=== PATIENT | female | born 1990 | race Caucasian/White ===

== ENCOUNTER 2024-07-19 05:15 | Emergency (ER) | payer MEDICAID, SELFPAY ==
[2024-07-19 05:19] VITALS: BMI 30.9
[2024-07-19 05:31] VITALS: BP 135/90; PULSE 70; RESP 16; TEMP 36.6; O2SAT 99
--- NOTE | 2024-07-19 06:22 | PD.EDNV ---
Nausea/Vomit./Diarrhea-RME/HPI General Chief complaint: Nausea/Vomiting/Diarrhea Stated complaint: VOMITING AND DIARRHEA FOR TWO HOURS Time Seen by Provider: 07/19/24 06:11 Source: patient Arrival date/time: 07/19/24 05:15 33-year-old female with a history of type 2 diabetes presents to the emergency room with a chief complaint of nausea, vomiting, diarrhea x 2 hours. Mode of arrival: ambulatory Limitations: no limitations Related Data Home Medications ?Medication ?Instructions ?Recorded ?Confirmed metformin 1,000 mg tablet 1,000 mg PO BID 06/19/21 06/23/21 norethindrone (contraceptive) 0.35 0.35 mg PO QDAY 06/19/21 06/23/21 mg tablet (Namita) paroxetine HCl 30 mg tablet 30 mg PO DAILY 06/19/21 06/23/21 sitagliptin phosphate 100 mg 100 mg PO QDAY 06/19/21 06/23/21 tablet (Januvia) Allergies Allergy/AdvReac Type Severity Reaction Status Date / Time No Known Allergies Allergy Verified 07/19/24 05:16 Review of Systems Review of Systems Systems Reviewed: All systems reviewed, normal except as documented Constitutional Constitutional: Reports system reviewed and no additional complaints, except as documented, Denies fatigue, Denies fever(s), Denies headache(s) and Denies weakness Eyes Eyes: Reports system reviewed and no additional complaints, except as documented, Denies blurry vision and Denies change in vision ENT Ears, Nose, Mouth, and Throat: Reports system reviewed and no additional complaints, except as documented, Denies otalgia, Denies headache(s), Denies nasal congestion, Denies throat swelling and Denies vertigo Cardiovascular Cardiovascular: Reports system reviewed and no additional complaints, except as documented, Denies chest pain, Denies dyspnea and Denies dyspnea on exertion Respiratory Respiratory: Reports system reviewed and no additional complaints, except as documented, Denies chest congestion, Denies cough, Denies dyspnea, Denies dyspnea on exertion and Denies wheezing Gastrointestinal Gastrointestinal: Reports system reviewed and no additional complaints, except as documented, Reports abdominal pain, Reports cramping, Reports nausea and Reports vomiting Genitourinary Genitourinary: Reports system reviewed and no additional complaints, except as documented Musculoskeletal Musculoskeletal: Reports system reviewed and no additional complaints, except as documented and Denies back pain Integumentary/Breasts Skin/Breast: Reports system reviewed and no additional complaints, except as documented and Denies wounds Neurologic Neurologic: Reports system reviewed and no additional complaints, except as documented, Denies confusion, Denies headache(s), Denies lack of coordination, Denies vertigo and Denies weakness Psychiatric Psychiatric: Reports system reviewed and no additional complaints, except as documented, Denies anxiety, Denies confusion, Denies depression, Denies paranoia, Denies suicidal ideation and Denies tactile hallucinations Endocrine Endocrine: Reports system reviewed and no additional complaints, except as documented and Denies fatigue Hematologic/Lymphatic Hematologic/Lymphatic: Reports system reviewed and no additional complaints, except as documented and Denies lymphadenopathy Allergic/Immunologic Allergic/Immunologic: Reports system reviewed and no additional complaints, except as documented, Denies throat swelling, Denies urticaria and Denies wheezing Past Medical History Past Medical History NEUROLOGIC: Positive Head Trauma (AT 4 YRS OLD ER VISIT,AT 10 YRS OLD MD VISIT); Negative Neurological Disorders, Cerebrovascular Accident, Alzheimer's Disease or Seizures CARDIAC: Negative Cardiac Disorders, Congestive Heart Failure, Edema, Cellulitis or Varicose Veins RESPIRATORY: Negative Chronic Obstructive Pulmonary Disease (COPD), Tuberculosis, Pulmonary Embolism or Sleep Apnea GASTROINTESTINAL: Positive Gastrointestinal Disorders and Gastroesophageal Reflux Disease; Negative Hepatitis or Colorectal Cancer GENITOURINARY: Negative Genitourinary Disorders, Renal Disease or Prostate Cancer REPRODUCTIVE: Positive Previous Pregnancies (X2); Negative Breast Cancer, Endometriosis, Genital Herpes, Gonorrhea, Pelvic Inflammatory Disease, Syphilis, Testicular Cancer or Uterine Prolapse MUSCULOSKELETAL: Positive Musculoskeletal Disorders; Negative Bone Cancer ENT: Positive Head Trauma (AT 4 YRS OLD ER VISIT,AT 10 YRS OLD MD VISIT) ENDOCRINE: Positive Endocrine Disorders and Diabetes Mellitus Type 2 (TAKES PO MED); Negative Diabetes Mellitus Type 1 HEMATOLOGIC: Negative Blood Disorders PSYCHO/SOCIAL: Positive Depression (TAKES MED), Anxiety and Depression OTHER HISTORY: Negative Hospitalization, Autoimmune Disease, Shingles, Falls, Blood Transfusions, Blood Transfusion Reaction, Anesthesia Reactions, Organ Transplant, Chemotherapy, Radiation Therapy, Hyperbaric Therapy, MRSA, VRSA, Vancomycin-Resistant Enterococci, Human Immunodeficiency Virus (HIV), Chicken Pox, Measles, Mumps, Rubella ([place] Measles), Pertussis, Clostridium Difficile, Breast Cancer, Cervical Cancer, Colorectal Cancer, Lung Cancer, Ovarian Cancer, Prostate Cancer or Testicular Cancer Family History FAMILY HISTORY: Positive Family Psychiatric Problems (MOTHER,SISTER (DEPRESSION,ANXIETY)), Family Respiratory Disorders (SISTER (ASTHMA)), Family Cardiac Disorders (MOTHER,FATHER (HTN)) and Family Surgery (FATHER,SISTER); Negative Family Gastrointestinal Problems, Family Cancer or Family Anesthesia Reaction Surgical History SURGICAL: Negative Pacemaker, Section or Organ Transplant Social History SMOKING STATUS: Never smoker SECOND HAND EXPOSURE: Yes (mother, father and brother) ED Exam General Limitations: Present no limitations General appearance: Present alert and in no apparent distress Head Head exam: Present atraumatic Eye Eye exam: Present normal appearance, PERRL and EOMI ENT ENT exam: Present normal exam, normal oropharynx and mucous membranes moist Neck Neck exam: Present normal inspection, full ROM and trachea midline Chest Chest inspection: Present normal inspection and symmetric chest wall rise Respiratory Respiratory exam: Present normal lung sounds bilaterally Cardiovascular Cardiovascular exam: Present regular rate, normal rhythm and normal heart sounds Abdominal Exam Abdominal exam: Present soft and normal bowel sounds; Absent distention, tenderness, guarding or rebound Extremities Exam Extremities exam: Present normal inspection and full ROM Back Exam Back exam: Present normal inspection and full ROM Neurological Exam Neurological exam: Present alert, oriented X3 and CN II-XII intact Psychiatric Psychiatric exam: Present normal affect and normal mood Skin Skin exam: Present warm, dry, intact and normal color Course Quality Measures none Orders Category Date Time Status CBC Stat Lab 07/19/24 06:26 Completed CMP [Comprehensive Metabolic Panel] Stat Lab 07/19/24 06:26 Completed HCG,Qualitative Serum Stat Lab 07/19/24 06:26 Completed Lipase Stat Lab 07/19/24 06:26 Completed Metoclopramide Inj [Reglan Inj] Med 07/19/24 06:21 Discontinued 10 mg IM X1 ONE Vital Signs Vital signs: Vital Signs Temperature 97.9 F 07/19/24 05:31 Pulse Rate 70 07/19/24 05:31 Respiratory Rate 16 07/19/24 05:31 Blood Pressure 135/90 H 07/19/24 05:31 Pulse Oximetry (%) 99 07/19/24 05:31 Oxygen Delivery Method Room Air 07/19/24 05:31 O2 saturation 99% within normal limits Nausea/Vomiting/Diarrhea MDM Narrative MDM Narrative:: 33-year-old female with a history of type 2 diabetes presents to the emergency room with a chief complaint of nausea, vomiting, diarrhea x 2 hours. Patient is hemodynamically stable and in no apparent distress Physical examination shows a soft nontender abdomen Patient is seen here due to her nausea and vomiting that have been going on for the last 2 hours and have not gotten better. Patient states she recently restarted to take her Ozempic medication and started it at her old dose. Patient states since taking this medication she has developed abdominal pain nausea and vomiting CBC CMP are within normal limits. The patient was given an IM shot of Reglan and her symptoms have gotten better The patient was called back for reevaluation but eloped. Patient eloped prior to final disposition Patient data External records reviewed:: [facility] previous records Clinical information provided by:: patient Social determinants that could affect healthcare access:: none Patient has the following chronic illnesses:: No chronic illness How is presenting disease/condition affected by chronic disease/condition?: no chronic disease Evaluation data The following diagnostics were reviewed and interpreted by me:: lab results and radiology exam(s) Lab and/or radiology exams considered but not ordered:: Labs and radiology exams considered and ordered Interpretation Summary: N/A Medications / Prescriptions Medications / Prescriptions considered but not ordered:: Medication given Medication administrations:: Medication Administration History Discontinued Medications Metoclopramide HCl (Metoclopramide Inj 5 Mg/Ml Vial 2 Ml) 10 mg IM X1 ONE; Protocol Stop: 07/19/24 06:22 Last Admin: 07/19/24 06:48 Dose: 10 mg Documented By: BD Medication given Consultations Consultation(s) initiated? (list below): No Diagnosis Nausea Differential Diagnosis: food poisoning, gastroenteritis, drug-induced nausea and vomiting and dehydration Most likely diagnosis given after review of the tests above:: Gastroenteritis Admission Indicated Admission indicated?: not indicated Admission Request Was there a request for admission?: No Disposition Plan Disposition Plan: Discharge Discharge Attestation Discharge Attestation: The patient and all family members were given an opportunity to ask questions and understood the discharge instructions. Discharge instructions specifically effects, indications for sooner follow up or return to the emergency department, and the expected course of current diagnosis. Patient condition: Stable Discharge Plan Plan Patient Disposition: Elopement Discharge Disposition comment: Stable Prescriptions/Referrals Prescriptions/Med Rec: No Action paroxetine HCl 30 mg Tablet 30 mg PO DAILY metformin 1,000 mg tablet 1,000 mg PO BID Patient Comments: TAKE 1 TABLET BY MOUTH TWICE A DAY WITH A MEAL FOR 90 DAYS norethindrone (contraceptive) [Namita] 0.35 mg Tablet 0.35 mg PO QDAY Januvia 100 mg Tablet 100 mg PO QDAY Problem List Clinical Impression: Gastroenteritis Patient/Caregiver Discharge Instructions Print Language: Telugu
[2024-07-19 06:46] LABS: Basophils # (Auto) 0.1 Thou/mm3 (0.0-0.2); Basophils % (Auto) 1 % (0-2.5); Eosinophils % (Auto) 0 % (0-10); Hematocrit 39.9 % (36.0-46.0); Hemoglobin 14.7 g/dL (12.0-16.0); Immature Granulocytes % (Auto) 0 % (0-0); Immature Granulocytes Auto 0.04 Thou/mm3 (0.00-0.00); Lymphocytes # (Auto) 1.1 Thou/mm3 (1.0-4.8); Lymphocytes % (Auto) 9 % (10-50); Mean Corpuscular HGB Conc 36.8 g/dl (31.0-37.0); Mean Corpuscular Volume 87 fL (80-100); Monocytes # (Auto) 0.4 Thou/mm3 (0.0-0.8); Monocytes % (Auto) 3 % (0-12); Neutrophils # (Auto) 11.5 Thou/mm3 (1.8-7.7); Neutrophils % (Auto) 87 % (37-80); Nucleated Red Blood Cell % 0 /100 WBC (0); Platelet Count 254 Thou/mm3 (140-440); RDW Standard Deviation 40.4 fL (36.4-46.3); Red Blood Count 4.59 Miln/mm3 (4.00-5.20); White Blood Count 13.2 Thou/mm3 (3.6-11.0)
[2024-07-19] MEDS: METOCLOPRAMIDE INJ 5 MG/ML VIAL 2 ML 10 MG IM (06:48)
[2024-07-19 07:11] LABS: Alanine Aminotransferase 28 U/L (10-49); Albumin, Serum 4.6 gm/dL (3.5-5.0); Albumin/Globulin Ratio 1.7 (1.2-2.2); Alkaline Phosphatase 48 U/L (46-116); Anion Gap 16 (7-16); Aspartate Amino Transferase 36 U/L (0-34); BUN/Creatinine Ratio 10 Ratio (12-20); Bilirubin,Total 0.6 mg/dL (0.3-1.2); Blood Urea Nitrogen 7 mg/dL (9-23); Carbon Dioxide 21.8 mMol/L (20.0-31.0); Chloride 104 mMol/L (98-107); Creatinine (Component) 0.7 mg/dL (0.6-1.3); Estimated Creatinine Clearance 120.4 mL/min (>60); Globulin 2.7 gm/dL (2.3-3.5); Glucose 276 mg/dL (74-106); Lipase 56 U/L (12-53); Osmolality,Calculated 291 (275-295); Potassium 3.9 mMol/L (3.4-5.1); Sodium 142 mMol/L (136-145); Total Protein 7.3 gm/dL (5.7-8.2); eGFR > 60 See Note
[2024-07-19 07:15] LABS: HCG,Qualitative Serum Negative
--- NOTE | 2024-07-19 07:37 | PC.NURSE ---
CALLED PT FOR MEDIA PLANNER/PA REEVAL BUT DID NOT ANSWER X1
--- NOTE | 2024-07-19 09:08 | PC.NURSE ---
PT WAS CALLED THE FOLLOWING TIMES AND NO ANSWER NA x 1 @040, NA @0811 , NA@ 0834, NA@ 0936
== END 2024-07-19 09:10 | disposition left against medical advice (07) ==
LOC: SERX 09:30
PROVIDERS: Nurse Practitioner Family; Emergency Provider Emergency Medicine
DX: K52.9 Noninfective gastroenteritis and colitis, unspecified (principal); E11.9 Type 2 diabetes mellitus without complications
CPT/HCPCS: 36415; 80053; 83690; 84703; 85025; 96372; 99283; J2765

== ENCOUNTER 2024-07-20 03:56 | Inpatient (IN) | payer MEDICAID, SELFPAY ==
[2024-07-20 03:58] VITALS: BMI 30.9
[2024-07-20 05:08] VITALS: BP 148/93; PULSE 87; RESP 20; TEMP 37.2; O2SAT 96
--- NOTE | 2024-07-20 05:35 | PD.EDRME ---
Rapid Medical Screening Exam [facility] Arrival date/time: 07/20/24 03:56 33F with history of DM and marijuana use presents to ED with several days of N/V and minimal non-bloody diarrhea. Patient was here yesterday but eloped. Patient has never been in DKA and denies ab pain. Patient resumed Ozempic about 3 weeks ago. Chief Complaint: Nausea/Vomiting/Diarrhea Vital signs: Vital Signs Temperature 99.0 F 07/20/24 05:08 Pulse Rate 87 07/20/24 05:08 Respiratory Rate 20 07/20/24 05:08 Blood Pressure 148/93 H 07/20/24 05:08 Pulse Oximetry (%) 96 07/20/24 05:08 Oxygen Delivery Method Room Air 07/20/24 05:08
[2024-07-20 06:33] LABS: Collection Type, Urine Clean Catch
[2024-07-20 06:36] LABS: Lactate (Lactic Acid) 1.8 mMol/L (0.4-2.0)
[2024-07-20 06:37] LABS: Base Excess, Venous 2 (-3-3); O2 Saturation, Venous 72 % (96-97); PCO2, Venous 42 mmHg (36-56); PO2, Venous 38 mmHg (15-58); pH, Venous 7.41 (7.33-7.66)
[2024-07-20 06:39] LABS: Basophils % (Auto) 0 % (0-2.5); Eosinophils % (Auto) 0 % (0-10); Hematocrit 44.7 % (36.0-46.0); Hemoglobin 15.8 g/dL (12.0-16.0); Immature Granulocytes % (Auto) 0 % (0-0); Immature Granulocytes Auto 0.08 Thou/mm3 (0.00-0.00); Lymphocytes # (Auto) 1.4 Thou/mm3 (1.0-4.8); Lymphocytes % (Auto) 8 % (10-50); Mean Corpuscular HGB Conc 35.3 g/dl (31.0-37.0); Mean Corpuscular Hemoglobin 32.1 pg (25.0-35.0); Mean Corpuscular Volume 91 fL (80-100); Monocytes # (Auto) 0.9 Thou/mm3 (0.0-0.8); Monocytes % (Auto) 5 % (0-12); Neutrophils # (Auto) 15.7 Thou/mm3 (1.8-7.7); Neutrophils % (Auto) 87 % (37-80); Nucleated Red Blood Cell % 0 /100 WBC (0); Platelet Count 336 Thou/mm3 (140-440); RDW Standard Deviation 42.8 fL (36.4-46.3); Red Blood Count 4.92 Miln/mm3 (4.00-5.20); White Blood Count 18.1 Thou/mm3 (3.6-11.0)
[2024-07-20 06:43] LABS: Beta Hydroxybutyrate 0.8 mmol/L (<0.6)
[2024-07-20 06:48] LABS: HCG Qualitative,Urine Negative
[2024-07-20 06:55] LABS: Amorphous Crystals,Urine Present (Absent); Bacteria,Urine Rare; Bilirubin,Urine Negative (Negative); Blood,Urine Trace (Negative); Clarity,Urine Turbid (Clear/Hazy); Color,Urine Yellow (Lt Yel-Yel); Culture Indicated,Urine Not Indicated; Glucose, Urine 1+ (Negative); Ketones,Urine 4+ (Negative); Leukocyte Esterase,Urine Negative (Negative); Nitrite,Urine Negative (Negative); PH,Urine 6.5 (5.0-7.0); Protein,Urine 3+ (Neg - Trace); RBC,Urine 4 /hpf (0-3); Specific Gravity,Urine 1.036 (1.001-1.035); Squamous Epithelial Cell,Urine 5 /hpf (0-5); Urobilinogen,Urine Negative mg/dL (0.0-1.0); WBC,Urine 8 /hpf (0-5)
[2024-07-20 06:58] LABS: Amphetamine/Methamp Scrn,U Negative (Negative); Barbiturate Screen,Urine Negative (Negative); Benzodiazepines Screen,Urine Negative (Negative); Benzoylecgonine Screen, Ur Negative (Negative); Fentanyl Screen,Urine Negative (Negative); Opiate Screen,Urine Negative (Negative); THC Screen,Urine Positive (Negative)
[2024-07-20 07:07] LABS: Alanine Aminotransferase 25 U/L (10-49); Albumin, Serum 5.2 gm/dL (3.5-5.0); Albumin/Globulin Ratio 1.9 (1.2-2.2); Alkaline Phosphatase 52 U/L (46-116); Anion Gap 16 (7-16); Aspartate Amino Transferase 21 U/L (0-34); BUN/Creatinine Ratio 10 Ratio (12-20); Bilirubin,Total 0.6 mg/dL (0.3-1.2); Blood Urea Nitrogen 8 mg/dL (9-23); Calcium 9.2 mg/dL (8.3-10.6); Calcium (Corrected) 9.2 mg/dL (8.5-10.1); Carbon Dioxide 24.5 mMol/L (20.0-31.0); Chloride 102 mMol/L (98-107); Creatinine (Component) 0.8 mg/dL (0.6-1.3); Estimated Creatinine Clearance 105.3 mL/min (>60); Globulin 2.8 gm/dL (2.3-3.5); Glucose 235 mg/dL (74-106); Lipase 55 U/L (12-53); Osmolality,Calculated 289 (275-295); Potassium 3.4 mMol/L (3.4-5.1); Procalcitonin < 0.04 ng/ml (0.0-0.49); Sodium 142 mMol/L (136-145); eGFR > 60 See Note
[2024-07-20] MEDS: METOCLOPRAMIDE INJ 5 MG/ML VIAL 2 ML 10 MG IVP ×2 (07:53→22:09)
[2024-07-20] MEDS: DiphenhydrAMINE INJ 50 MG/ML VIAL 12.5 MG IVP (07:55)
[2024-07-20] MEDS: RINGERS LACTATED 1000 ML 1,000 ML 999 ML IV (07:56)
--- NOTE | 2024-07-20 08:37 | PC.NURSE ---
PTS MOM ARRIVED, STATING HER DAUGHTER NEEDS A ROOM, QUESTIONING WHY SHE IS IN RP. THIS RN EXPLAINED, PT APPEARED UNCOMFORTABLE AND THERE ARE NO ROOMS AVAILABLE CURRENTLY ON THE MAIN SIDE PT HAS BEEN SLOTTED FOR MAIN ED. MOM THEN STATES THAT THERE ARE PLENTY OF ROOMS OPEN, THIS RN EXPLAINED THERE ARE NONE AVAILABLE FOR THE MAIN SIDE AT THIS TIME, THAT THE EMPTY ROOMS IN [facility] ARE PROCEDURE ROOMS FOR PTS WHO REQUIRE PRIVACY FOR PROCEDURES. THIS RN EXPLAINED THAT THIS RN NOTICED PT WAS CRYING UNCOMFORTABLE, SO MYSELF AND THE GLAUCOMA SPECIALIST AGREED TO PUT PT IN RP SO THIS RN CAN START AN IV AND MEDICATE PT TO MAKE HER MORE COMFORTABLE. GLAUCOMA SPECIALIST MADE AWARE OF THIS INTERACTION
[2024-07-20] MEDS: ONDANSETRON INJ 2 MG/ML INJ 2 ML 8 MG IVP (09:17)
[2024-07-20 10:14] VITALS: BP 143/90; PULSE 98; RESP 18; TEMP 37.1; O2SAT 98
[2024-07-20] MEDS: SODIUM CHLORIDE 0.9% 1000 ML 1,000 ML 999 ML IV ×3 (12:51→19:15)
[2024-07-20] MEDS: DiphenhydrAMINE INJ 50 MG/ML VIAL IVP (12:52)
[2024-07-20] MEDS: HALOPERIDOL LACT INJ 5 MG/ML VIAL 2 MG IV (12:55)
[2024-07-20 13:29] VITALS: BP 121/79; PULSE 88; RESP 18; TEMP 37.1; O2SAT 98
[2024-07-20] MEDS: HALOPERIDOL LACT INJ 5 MG/ML VIAL 3 MG IV (14:17)
--- NOTE | 2024-07-20 16:40 | PC.NURSE ---
Hand off report received from Fifi HOYT. Pt was seen, pt c/o of n/v she is hunched over and vomiting yellow bile like emesis. Pt is also requesting something to eat, I explained to her that she is not able to have anything d/t her nausea and doctor needs to see her first. Pt agreed.
[2024-07-20 17:51] VITALS: BP 145/96; PULSE 84; RESP 16; TEMP 36.8; O2SAT 97
--- NOTE | 2024-07-20 19:00 | XR_ITS ---
Examination: CT abdomen with intravenous contrast CT pelvis with intravenous contrast 2-D coronal reconstructions 2-D sagittal reconstructions Date and time of exam:July 20, 20242000 hours INDICATIONS: Vomiting and nausea beginning 2 days ago. CTDI: vol (mGy) 12 DLP: (mGycm) 724 Technique: Multiple axial sections of the abdomen and pelvis have been obtained. 64 slice high-resolution scanner used. 3 mm axial sections have been obtained, post intravenous injection 60 cc [id number] 2-D sagittal, coronal reconstructions obtained. Low dose protocols were performed. One or more of the following dose reduction techniques were used; automated exposure control, adjustment of the mA and/or KV according to patient size, use of iterative reconstruction technique. Findings: No focal liver or splenic lesions No gallstones No pancreatic or adrenal mass No renal or ureteral calculi, no bowel obstruction Normal appendix No diverticulitis, colonic wall shows mild wall thickening and hyperemia Anteverted uterus with no uterine mass Intact urinary bladder Mild disc narrowing L5-S1 IMPRESSION: Mild nonspecific diffuse colitis pattern
--- NOTE | 2024-07-20 19:02 | PD.EDADDENDU ---
Emergency Room Addendum Addendum Narrative: Patient was brought back from the waiting room for my reevaluation where she has intractable nausea and vomiting and is a known diabetic. 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 She was not acidotic. Not in DKA. After 7 to 8 hours of observing working her up and fluids she is still not better. I ordered a CT scan of the abdomen pelvis even of the abdomen soft and benign after consultation with hospitalist and the plan is to admit her for intractable nausea and vomiting. I reexamined this patient multiple times she does have a soft benign belly. She is alert awake cooperative chest is clear there are no peritoneal signs. Extremities are warm and dry. Labs show specific gravity quite dry on original urine analysis. Physical Exam: General: The vital signs were reviewed. The patient is non-toxic, in no apparent distress and appears healthy with a patent airway, no respiratory distress and has no apparent circulatory problems. Head & Scalp: Normocephalic, atraumatic. Face: Appears normal and is without lesions, deformity. Ears: Left external pinna appears normal. Right external pinna appears normal. Eyes: The sclera is anicteric. No obvious photophobia. The Left and Right Orbit/Lid/Conjunctiva appears normal without swelling, discoloration or injection. Nose: The nose is without deformity, discharge or tenderness; Throat: Appears normal. The mucous membranes are pink and moist without exudates, redness or mass seen. The tongue appears normal. Neck: The neck is supple and no apparent mass or adenopathy. Chest: The chest wall is normal in size and symmetry and has no chest wall tenderness or crepitus. The patient displays normal ventilator effort without retractions, accessory muscle use and has adequate air movement bilaterally with no wheezes and no rales. Cardiovascular: Regular rate and rhythm; No murmurs, rubs, or gallops; Gastrointestinal: The abdomen appears normal. No obvious hernias or mass. The abdomen is soft and benign, non-distended, with no pain, no guarding and no rebound tenderness. Bowel sounds are present and normal sounding. No CVA tenderness. Genitourinary: Back/Spine: Extremities/Musculoskeletal/lymphatic: The bilateral upper and lower extremities are warm. There is no evidence of arterial insufficiency. There is no evidence of venous insufficiency/edema. The patient spontaneously moves bilateral upper and lower extremities with no pain and no limitation of movement. There is no apparent, injury or trauma. Skin: The skin is warm, dry and intact. No rashes. No petechia. No purpura. No abnormal bruising. The color is appropriate with no cyanosis. Mental status/Psychiatric: Mental status is appropriate for age. The patient has no apparent delusions, visual hallucinations, no apparent audible hallucinations. The patient has no apparent suicidal thoughts/ideation and no apparent homicidal thoughts/ideation. Neurological: The patient is awake, alert, interactive, cordial, cooperative and is oriented to name and situation. The patient follows commands and answers historical question with no impairment. There is no visual disturbance apparent. The pupils are equal and reactive bilaterally with normal eye movements and no diplopia The bilateral upper and lower extremities have normal strength, normal range of motion and normal functioning. The gait, station and balance appear to be baseline with no acute change At 1900 hrs. and they will follow-up on the CT scan the patient admitted for intractable nausea vomiting
[2024-07-20] MEDS: ONDANSETRON INJ 2 MG/ML INJ 2 ML 4 MG IV (20:49)
[2024-07-20] MEDS: RINGERS LACTATED 1000 ML 1,000 ML 75 ML IV (20:50)
[2024-07-20] MEDS: cefTRIAXone/D5w 1gm IV premix 1 GM/50 ML BAG IV (22:08)
[2024-07-20] MEDS: HEPARIN SOD INJ 5000 UNIT/ML VIAL SC (22:08)
[2024-07-20] MEDS: SCOPOLAMINE 1 MG TDSY TOP (22:09)
--- NOTE | 2024-07-20 22:13 | PD.RESHP ---
Documentation for date of: 07/20/24 HPI History of Present Illness Chief complaint: Intractable nausea and vomiting History of present illness: Patient is 33-year-old female with past medical history of diabetes and obesity presented to the ED due to intractable nausea and vomiting since . Patient reports that day prior on Tuesday she received her third dose of Ozempic for weight loss. She was prescribed Ozempic more than a year ago and was getting shots regularly however discontinued it approximately 3 months ago. When she was initiated on Ozempic her dose was gradually increased however at this time she was started straight on 1 mg dose. Her nausea and vomiting started suddenly in the morning and were uncontrolled. She did not try to take any medication and her p.o. intake was poor. She denies previous similar symptoms. She smokes marijuana daily. She denies using any other drugs, smoking tobacco or drink alcohol. She denies diarrhea or constipations. She denies any blood per rectum or vomiting blood. She also denies eating anything unusual or recent travel. On admission her blood pressure 148/93, pulse 87, respirations 20, temperature 99 ?F, oxygen saturation 96% on room air. Labs showed WBCs 18.1, glucose 235, BHB 0.8, lipase 55, pro-jaelyn < 0.04, anion gap 16, lactic acid 1.8. VBG showed pH 7.41, PCO2 42, PO2 38. Urinalysis showed turbid urine, specific gravity 1.036, protein 3+, glucose 1+, ketones 4+, RBCs 4, WBCs 8, presence of amorphous crystals, rare bacteria. U tox was positive for THC. Abdominal CT showed nonspecific diffuse colitis pattern. Patient was admitted for further management and evaluation. PMH: Diabetes and obesity. PSH: None. SH: Smokes marijuana daily. Denies drinking alcohol or smoking tobacco or using other illicit drugs. FH: None. Allergies: NKA. Medications: Paroxetine, metformin, Januvia, Ozempic. Review of Systems Review of Systems Systems Reviewed: All systems reviewed, normal except as documented Exam Vital Signs Temp Pulse Resp BP Pulse Ox O2 Del Method 98.2 F 84 16 145/96 H 97 Room Air 07/20/24 17:51 07/20/24 17:51 07/20/24 17:51 07/20/24 17:51 07/20/24 17:51 07/20/24 17:51 Narrative Exam Gen: Well-developed and well-nourished obese female. HEENT: NCAT, PERRLA, EOMI, MMM, anicteric conjunctivae. CVS: normal S1 and S2. RRR. No M/R/G. Resp: CTA B/L. No rhonchi, rales, crackles or wheezing. Abd: soft, tender in RLQ, non-distended. BS+ in all 4 quadrants. MSK: Good ROM in BUE & BLE. No edema or rash. Neuro: CN II-XII grossly intact. Strength 5/5 in BUE & BLE. Alert and oriented x3. Psych: Appears tearful and scared. Results: Labs 07/20/24 22:27 07/20/24 22:27 Labs: Short CBC 07/20/24 Range/Units 06:15 WBC 18.1 H (3.6-11.0) Thou/mm3 Hgb 15.8 (12.0-16.0) g/dL Hct 44.7 (36.0-46.0) % Plt Count 336 D (140-440) Thou/mm3 BMP 07/20/24 06:15 Sodium 142 Potassium 3.4 D Chloride 102 Carbon Dioxide 24.5 BUN 8 L Creatinine 0.8 Glucose 235 H Calcium 9.2 Liver Function 07/20/24 Range/Units 06:15 Total Bilirubin 0.6 (0.3-1.2) mg/dL AST 21 (0-34) U/L ALT 25 (10-49) U/L Alkaline Phosphatase 52 (46-116) U/L Albumin 5.2 H D (3.5-5.0) gm/dL Urine 07/20/24 Range/Units 06:20 Urine Color Yellow (Lt Yel-Yel) Urine Clarity Turbid A (Clear/Hazy) Urine pH 6.5 (5.0-7.0) Ur Specific [place] 1.036 H (1.001-1.035) Urine Protein 3+ A (Neg - Trace) Urine Glucose (UA) 1+ A (Negative) ABG Interpretation ABG results: 07/20/24 06:15 VBG pH 7.41 VBG pCO2 42 VBG pO2 38 VBG Base Excess 2 Quality Measures Quality Measures VTE prophylaxis Medications Home Medications and Allergies Home Medications ?Medication ?Instructions ?Recorded ?Confirmed ?Type metformin 1,000 mg tablet 1,000 mg PO BID 06/19/21 06/23/21 History norethindrone (contraceptive) 0.35 0.35 mg PO QDAY 06/19/21 06/23/21 History mg tablet (Namita) paroxetine HCl 30 mg tablet 30 mg PO DAILY 06/19/21 06/23/21 History sitagliptin phosphate 100 mg 100 mg PO QDAY 06/19/21 06/23/21 History tablet (Januvia) Allergies Allergy/AdvReac Type Severity Reaction Status Date / Time No Known Allergies Allergy Verified 07/20/24 04:01 Visit Medications Acetaminophen (Acetaminophen 325 Mg Tablet) 650 mg PO Q6H PRN PRN Reason: Fever >101.5 Stop: 08/19/24 20:35 Acetaminophen (Acetaminophen 325 Mg Tablet) 650 mg PO Q6H PRN PRN Reason: PAIN SCALE 1-3 (mild Stop: 08/19/24 20:35 Heparin Sodium (Porcine) (Heparin Sod Inj 5000 Unit/Ml Vial) 5,000 unit SC Q12HR [facility] Stop: 08/03/24 20:59 Lactated Ringer's (Lactated Ringers) 1,000 mls @ 75 mls/hr IV .[id number] [facility] Stop: 08/19/24 20:44 Last Admin: 07/20/24 20:50 Dose: 75 mls/hr Ceftriaxone Sodium/Dextrose (Rocephin/D5w 1gm Iv Premix) 1 gm in 50 mls @ 100 mls/hr IV QDAY [facility] Stop: 07/27/24 21:19 Melatonin (Melatonin 3 Mg Tablet) 3 mg PO HS PRN PRN Reason: insomnia Stop: 08/20/24 20:59 Metoclopramide HCl (Metoclopramide Inj 5 Mg/Ml Vial 2 Ml) 10 mg IVP Q6H PRN; Protocol PRN Reason: NAUSEA OR VOMITING Stop: 08/19/24 20:35 Pantoprazole Sodium (Pantoprazole Inj 40 Mg Vial) 40 mg IVP QDAY [facility] Stop: 08/20/24 08:59 Prochlorperazine Maleate (Prochlorperazine Maleate 5 Mg Tablet) 10 mg PO Q6H PRN; Protocol PRN Reason: NAUSEA OR VOMITING Stop: 08/19/24 20:35 Sennosides (Senna Tablet) 1 tab PO QDAY PRN; Protocol PRN Reason: constipation Stop: 08/19/24 20:35 Discontinued Medications Diphenhydramine HCl (Diphenhydramine Inj 50 Mg/Ml Vial) 12.5 mg IVP X1 ONE Stop: 07/20/24 05:35 Last Admin: 07/20/24 07:55 Dose: 12.5 mg Diphenhydramine HCl (Diphenhydramine Inj 50 Mg/Ml Vial) 50 mg IVP X1 ONE Stop: 07/20/24 12:39 Last Admin: 07/20/24 12:52 Dose: 50 mg Haloperidol Lactate (Haloperidol Lact Inj 5 Mg/Ml Vial) 2 mg IV X1 ONE Stop: 07/20/24 12:39 Last Admin: 07/20/24 12:55 Dose: 2 mg Haloperidol Lactate (Haloperidol Lact Inj 5 Mg/Ml Vial) 3 mg IM X1 ONE Stop: 07/20/24 14:05 Last Admin: 07/20/24 14:16 Dose: Not Given Haloperidol Lactate (Haloperidol Lact Inj 5 Mg/Ml Vial) 3 mg IM X1 ONE Stop: 07/20/24 14:13 Last Admin: 07/20/24 14:15 Dose: Not Given Haloperidol Lactate (Haloperidol Lact Inj 5 Mg/Ml Vial) 3 mg IV X1 ONE Stop: 07/20/24 14:16 Last Admin: 07/20/24 14:17 Dose: 3 mg Lactated Ringer's (Lactated Ringers) 1,000 mls @ 999 mls/hr IV .Q1H1M ONE Stop: 07/20/24 06:34 Last Infusion: 07/20/24 09:22 Dose: Infused Sodium Chloride (Ns) 1,000 mls @ 150 mls/hr IV .Q6H40M ONE Stop: 07/20/24 19:03 Last Admin: 07/20/24 14:03 Dose: Not Given Sodium Chloride (Ns) 1,000 mls @ 999 mls/hr IV .Q1H1M ONE Stop: 07/20/24 13:24 Last Infusion: 07/20/24 14:00 Dose: Infused Sodium Chloride (Ns) 1,000 mls @ 999 mls/hr IV .Q1H1M ONE Stop: 07/20/24 15:03 Last Infusion: 07/20/24 15:31 Dose: Infused Sodium Chloride (Ns) 1,000 mls @ 999 mls/hr IV .Q1H1M ONE Stop: 07/20/24 20:00 Last Infusion: 07/20/24 20:41 Dose: Infused Metoclopramide HCl (Metoclopramide Inj 5 Mg/Ml Vial 2 Ml) 10 mg IVP X1 ONE; Protocol Stop: 07/20/24 05:35 Last Admin: 07/20/24 07:53 Dose: 10 mg Ondansetron HCl (Ondansetron Inj 2 Mg/Ml Inj 2 Ml) 8 mg IVP X1 ONE; Protocol Stop: 07/20/24 09:11 Last Admin: 07/20/24 09:17 Dose: 8 mg Ondansetron HCl (Ondansetron Inj 2 Mg/Ml Inj 2 Ml) 4 mg IV X1 ONE; Protocol Stop: 07/20/24 20:35 Last Admin: 07/20/24 20:49 Dose: 4 mg Scopolamine (Scopolamine 1 Mg Tdsy) 1 mg TOP X1 ONE Stop: 07/20/24 21:20 Assessment & Plan Plan Patient is 33-year-old female with past medical history of diabetes and obesity on ozempic presented to the ED due to intractable nausea and vomiting since and was admitted for further management and evaluation. #Intractable nausea and vomiting. #Nonspecific colitis on CT scan. #Mildly elevated lipase. #History of type 2 diabetes mellitus with hyperglycemia. #History of obesity on Ozempic. #Daily use of marijuana. - Patient presented with nonspecific symptoms of intractable nausea and vomiting, her labs showed mildly elevated lipase and leukocytosis, CT scan showed nonspecific diffuse colitis pattern. - Patient was recently restarted on Ozempic 1 mg and received her third dose day prior. When she was started initially on Ozempic her dose was gradually increased and she denied any similar symptoms. - Labs showed WBCs 18.1, glucose 235, BHB 0.8, lipase 55, pro-jaelyn < 0.04, anion gap 16, lactic acid 1.8. VBG showed pH 7.41, PCO2 42, PO2 38. U tox was positive for THC. - In the ED was given 3 L of IVF, Zofran and metoclopramide for nausea and vomiting with poor response. Also was given multiple doses of haloperidol. - Possible causes are: Recently resumed Ozempic, cannabinoid hyperemesis, pancreatitis, colitis, hyperglycemia. Plan: - Start on LR 150 cc/h. - EKG ordered to evaluate QT. - Metoclopramide IV, Zofran IV, prochlorperazine [place] and scopolamine patch ordered. - started on SSI Q6H and given extra 5 units. - NPO until vomiting improved. - consider GI consult. - A1C ordered. #UTI. #Leukocytosis. - Labs showed WBCs 18.1. Urinalysis showed turbid urine, specific gravity 1.036, protein 3+, glucose 1+, ketones 4+, RBCs 4, WBCs 8, presence of amorphous crystals, rare bacteria. Endorsed dysuria symptoms. Plan: - ceftriaxone 1g IV QD. - urine and blood cultures ordered. FEN: NPO. DVT prophylaxis: Heparin. GI prophylaxis: Protonix. Dispo: Medsurg. CODE STATUS: Full code. Plan of care discussed with attending Dr. Biggs. Raymond Villa MD, PGY 2. Disclaimer: This note was dictated by speech recognition. Minor errors in passenger tire inspector may be present due to voice recognition software. Attending Provider Attestation/Addendum I have examined the patient, reviewed labs and imaging findings, discussed the case with the resident(s), and reviewed entered orders. I agree with the plan of care as outlined in this note, with these additional summaries/recommendations: 33-year-old female with past medical history of DM now on Ozempic and chronic marijuana use presents to the ED with chief complaint of intractable nausea and vomiting that has been ongoing for the last 2 days. Patient recently had dose increase of Ozempic now at 1 mg and received her third dose yesterday. Will admit patient for further workup and management of intractable vomiting possibly secondary to GLP-1 use versus cannabis hyperemesis syndrome. Hector Biggs MD
[2024-07-20 22:23] VITALS: BP 125/76; PULSE 88; RESP 18; TEMP 37.1; O2SAT 96
--- NOTE | 2024-07-20 22:30 | PC.NURSE ---
REPORT GIVEN TO NURYS-RN FLOOR NURSE
[2024-07-20 22:37] VITALS: BMI 66.6
[2024-07-20 22:50] LABS: Basophils % (Auto) 0 % (0-2.5); Eosinophils % (Auto) 0 % (0-10); Hematocrit 36.8 % (36.0-46.0); Hemoglobin 13.2 g/dL (12.0-16.0); Immature Granulocytes % (Auto) 0 % (0-0); Immature Granulocytes Auto 0.05 Thou/mm3 (0.00-0.00); Lymphocytes # (Auto) 1.6 Thou/mm3 (1.0-4.8); Lymphocytes % (Auto) 10 % (10-50); Mean Corpuscular HGB Conc 35.9 g/dl (31.0-37.0); Mean Corpuscular Volume 89 fL (80-100); Monocytes # (Auto) 0.8 Thou/mm3 (0.0-0.8); Monocytes % (Auto) 5 % (0-12); Neutrophils % (Auto) 85 % (37-80); Nucleated Red Blood Cell % 0 /100 WBC (0); Platelet Count 265 Thou/mm3 (140-440); RDW Standard Deviation 43.2 fL (36.4-46.3); Red Blood Count 4.12 Miln/mm3 (4.00-5.20); White Blood Count 16.5 Thou/mm3 (3.6-11.0)
[2024-07-20] MEDS: RINGERS LACTATED 1000 ML 1,000 ML 150 ML IV (23:24)
[2024-07-20] MEDS: INSULIN LISPRO (AdmeLOG) 1 UNIT/0.01 ML UNIT 5 UNIT SC (23:28)
[2024-07-20] MEDS: PROCHLORPERAZINE INJ 5 MG/ML VIAL 2 ML 10 MG IM ×2 (23:34→23:58)
[2024-07-20 23:36] LABS: Anion Gap 15 (7-16); BUN/Creatinine Ratio 10 Ratio (12-20); Blood Urea Nitrogen 6 mg/dL (9-23); Carbon Dioxide 25.4 mMol/L (20.0-31.0); Chloride 104 mMol/L (98-107); Creatinine (Component) 0.6 mg/dL (0.6-1.3); Estimated Creatinine Clearance 221.4 mL/min (>60); Glucose 179 mg/dL (74-106); Osmolality,Calculated 288 (275-295); Potassium 3.5 mMol/L (3.4-5.1); Sodium 144 mMol/L (136-145); eGFR > 60 See Note
[2024-07-21] VITALS (7 sets, daily range): BP systolic 133–158; BP diastolic 88–107; PULSE 77–92; RESP 16–21; TEMP 36.2–37.1; O2SAT 89–100
[2024-07-21] MEDS: PANTOPRAZOLE INJ 40 MG VIAL IVP ×2 (01:33→08:12)
[2024-07-21] MEDS: METOCLOPRAMIDE INJ 5 MG/ML VIAL 2 ML 10 MG IVP ×3 (03:44→19:00)
[2024-07-21 05:52] LABS: Basophils % (Auto) 0 % (0-2.5); Eosinophils % (Auto) 0 % (0-10); Hematocrit 40.2 % (36.0-46.0); Immature Granulocytes % (Auto) 0 % (0-0); Immature Granulocytes Auto 0.05 Thou/mm3 (0.00-0.00); Lymphocytes # (Auto) 1.7 Thou/mm3 (1.0-4.8); Lymphocytes % (Auto) 11 % (10-50); Mean Corpuscular HGB Conc 34.8 g/dl (31.0-37.0); Mean Corpuscular Hemoglobin 32.1 pg (25.0-35.0); Mean Corpuscular Volume 92 fL (80-100); Monocytes # (Auto) 0.8 Thou/mm3 (0.0-0.8); Monocytes % (Auto) 5 % (0-12); Neutrophils # (Auto) 13.4 Thou/mm3 (1.8-7.7); Neutrophils % (Auto) 84 % (37-80); Nucleated Red Blood Cell % 0 /100 WBC (0); Platelet Count 260 Thou/mm3 (140-440); RDW Standard Deviation 43.9 fL (36.4-46.3); Red Blood Count 4.36 Miln/mm3 (4.00-5.20)
[2024-07-21] MEDS: INSULIN LISPRO (AdmeLOG) 1 UNIT/0.01 ML UNIT SC ×2 (06:11→20:46)
[2024-07-21 06:22] LABS: Glucose Estimated Average 160 mg/dL (80-131); Hemoglobin A1C 7.2 % Hgb (4.8-6.0)
[2024-07-21 06:37] LABS: Albumin, Serum 4.3 gm/dL (3.5-5.0); Anion Gap 14 (7-16); BUN/Creatinine Ratio 8 Ratio (12-20); Blood Urea Nitrogen < 5 mg/dL (9-23); Calcium 8.7 mg/dL (8.3-10.6); Calcium (Corrected) 8.7 mg/dL (8.5-10.1); Carbon Dioxide 24.9 mMol/L (20.0-31.0); Chloride 99 mMol/L (98-107); Creatinine (Component) 0.6 mg/dL (0.6-1.3); Estimated Creatinine Clearance 221.4 mL/min (>60); Glucose 180 mg/dL (74-106); Osmolality,Calculated 277 (275-295); Phosphorous 2.2 mg/dL (2.4-5.1); Sodium 138 mMol/L (136-145); eGFR > 60 See Note
[2024-07-21] MEDS: CAPSAICIN CR 60 GM TUBE TOP ×2 (07:29→13:01)
[2024-07-21] MEDS: PARoxetine HCL 10 MG TABLET 30 MG PO (08:11)
[2024-07-21] MEDS: HEPARIN SOD INJ 5000 UNIT/ML VIAL SC (08:12)
[2024-07-21] MEDS: cefTRIAXone/D5w 1gm IV premix 1 GM/50 ML BAG IV (08:12)
[2024-07-21] MEDS: RINGERS LACTATED 1000 ML 1,000 ML 150 ML IV ×2 (08:49→15:43)
--- NOTE | 2024-07-21 09:54 | EKG_ITS ---
[facility] Test Date: 2024-07-21 Pat Name: PANCHO SPANGLER [facility] Administration Assistant: PATO1: : 1990 Requested By: Lashon Perez Order Number: [id number] Reading MD: Lashon Perez Measurements Intervals Lawn Rate: 82 P: 38 NM: 151 QRS: 89 QRSD: 91 T: 53 QT: 373 QTc: 436 Interpretive Statements SINUS RHYTHM Compared to ECG 06/22/2021 09:27:23 Sinus tachycardia no longer present /store/S0/[id number]
--- NOTE | 2024-07-21 09:59 | PC.NURSE ---
Clarissa RT aware of EKG order
[2024-07-21] MEDS: POTASSIUM CHL 10 mEq IVPB 10 MEQ/100 ML BAG 85 MEQ IV ×3 (10:13→12:59)
[2024-07-21] MEDS: Magnesium Sulfate 2 GM Ivpb 2 GM/50 ML BAG IV (10:19)
[2024-07-21] MEDS: ONDANSETRON INJ 2 MG/ML INJ 2 ML 4 MG IVP ×3 (10:19→21:31)
--- NOTE | 2024-07-21 11:37 | PC.NURSE ---
Called to Dr. Perez about pt. still having nausea and vomiting despite having zofran and trying all other ordered therapies and nursing interventions to help with the nausea and vomiting. Pt. is not experiencing any relief. RN recommends Phenergan as it is the only therapy we have not yet tried phenergan. Dr. Perez agrees to order medication as a one time dose.
--- NOTE | 2024-07-21 12:10 | ESPR_ITS ---
<Statement entered by Marlen Garcia MD - 07/21/24 13:38> I Marlen Garcia MD reviewed the note and agree with the resident's assessment & plan with exceptions as below. I have personally reviewed labs, imaging, home meds/prior records, examined the patient, formulated and discussed management plan with the IM team. 33-year-old F with Hx of DM on Ozempic presented with intractable nausea and vomiting with inability to tolerate p.o. admitted for possible intractable emesis secondary to GLP-1 agonist and cannabis use. Also noted to have dysuria for which empirically treating with Rocephin, pending urine cultures. Continue gentle IVF resuscitation, Zofran every 4 hours for emesis, discontinue Ozempic and avoid cannabis use. Patient was not on Ozempic for a while however resumed high-dose GLP-1 agonist which might of contributed to potential side effects. Will keep electrolytes within normal limits. Continue to provide supportive care Documentation for date of: 07/21/24 Subjective Subjective Interval history: The patient was seen and examined at the bedside. No acute overnight events were reported. She continues to experience nausea and dry heaving. Currently, she is receiving Reglan for symptom control; Zofran has been added, and one dose of Phenergan was administered. We will continue to closely monitor her symptoms. The patient was counseled that her nausea may persist, as GLP-1 medications can remain in the system for approximately one week. There is also a suspected component of cannabinoid hyperemesis; a topical cream was applied for symptomatic relief. IV hydration will be continued. Her diet will be advanced gradually, starting with clear liquids and progressing as tolerated. An EKG was performed to evaluate QT interval; no QT prolongation was noted. 2 mg of magnesium was administered. Laboratory results revealed hypokalemia and hypomagnesemia, both of which have been corrected. Current management will be continued. Urine culture is pending; empirical treatment with ceftriaxone is ongoing. The patient continues to report mild dysuria. Exam Vital Signs Temp Pulse Resp BP Pulse Ox O2 Del Method 97.5 F 79 18 136/90 H 95 Room Air 07/21/24 11:55 07/21/24 11:55 07/21/24 11:55 07/21/24 11:55 07/21/24 11:55 07/21/24 11:55 Narrative Exam GENERAL: no acute distress, AAO x3, well nourished. HEENT: Head AT/ NC. Mucous membranes moist. PERRL. NECK: Supple, no lymphadenopathy, no carotid bruits. CARDIOVASCULAR: RRR. Normal S1/S2, No m/r/g. No pitting edema of bilateral LEs. RESPIRATORY: CTAB. No wheezing, rhonchi, crackles. GASTROINTESTINAL: Abdomen soft, non tender no palpable masses. Bowel sounds present in all 4 quadrants. MUSCULOSKELETAL:? No cyanosis or edema, no visible joint swelling. NEUROLOGICAL: CN II-XII grossly intact. No focal deficits. Sensation intact, symmetric. PSYCHIATRIC: Awake and alert, not agitated, normal mood and affect. INTEGUMENTARY: No obvious rashes, no jaundice, normal turgor. Objective Labs 07/21/24 04:45 07/21/24 04:45 Labs: Laboratory Results - last 24 hr 07/20/24 07/21/24 22:27 04:45 WBC 16.5 H 16.0 H RBC 4.12 4.36 Hgb 13.2 D 14.0 Hct 36.8 40.2 MCV 89 92 MCH 32.0 32.1 MCHC 35.9 34.8 RDW Std Deviation 43.2 43.9 Plt Count 265 D 260 Neut % (Auto) 85 H 84 H Lymph % (Auto) 10 11 [place] % (Auto) 5 5 Eos % (Auto) 0 0 Baso % (Auto) 0 0 Neut # (Auto) 14.0 H 13.4 H Lymph # (Auto) 1.6 1.7 [place] # (Auto) 0.8 0.8 Eos # (Auto) 0.0 0.0 Baso # (Auto) 0.0 0.0 Immature Gran # (Auto) 0.05 H 0.05 H Absolute Nucleated RBC 0.00 0.00 Immature Gran % 0 0 Nucleated RBC % 0 0 Sodium 144 138 Potassium 3.5 3.0 L D Chloride 104 99 Carbon Dioxide 25.4 24.9 Anion Gap 15 14 BUN 6 L < 5 L Creatinine 0.6 0.6 Estim Creat Clear Calc 221.4 221.4 eGFR > 60 > 60 BUN/Creatinine Ratio 10 L 8 L Glucose 179 H D [address] Glu mg/dL 160 H Hemoglobin A1c 7.2 H Calculated Osmolality 288 277 Calcium 8.0 L 8.7 Corrected Calcium 8.7 Phosphorus 2.2 L Magnesium 2.0 Albumin 4.3 D ABG Interpretation ABG results: 07/20/24 06:15 VBG pH 7.41 VBG pCO2 42 VBG pO2 38 VBG Base Excess 2 Quality Measures Quality Measures VTE prophylaxis Assessment & Plan Assessment Current Active Medications: Generic Name Dose Route Start Last Admin Trade Name Chevy PRN Reason Stop Dose Admin Acetaminophen 650 mg 07/20/24 20:36 Acetaminophen 325 Mg Tablet PO 08/19/24 20:35 Q6H PRN Fever >101.5 Acetaminophen 650 mg 07/20/24 20:36 Acetaminophen 325 Mg Tablet PO 08/19/24 20:35 Q6H PRN PAIN SCALE 1-3 (mild Capsaicin 0 gm 07/21/24 01:30 07/21/24 07:29 Capsaicin Cr 60 Gm Tube TOP 08/20/24 01:29 1 applicatio TID ATA Administration Dextrose 25 ml 07/20/24 22:41 Dextrose 50%-Water Inj 50 Ml Syringe IV 08/19/24 22:40 Q15MIN PRN BG 50-70 responsive npo pt Dextrose 50 ml 07/20/24 22:41 Dextrose 50%-Water Inj 50 Ml Syringe IV 08/19/24 22:40 Q15MIN PRN BG <50 OR BG <70 & pt unresponsive Glucagon 1 mg 07/20/24 22:41 Glucagon Inj 1 Mg Vial IM Q15MIN PRN BG <70, and no IV access Heparin Sodium (Porcine) 5,000 unit 07/20/24 21:00 07/21/24 08:12 Heparin Sod Inj 5000 Unit/Ml Vial SC 08/03/24 20:59 5,000 unit Q12HR ATA Administration Ceftriaxone Sodium/Dextrose 1 gm in 50 mls @ 100 mls/hr 07/20/24 21:20 07/21/24 08:42 Rocephin/D5w 1gm Iv Premix IV 07/27/24 21:19 Infused QDAY ATA Infusion Lactated Ringer's 1,000 mls @ 150 mls/hr 07/20/24 22:33 07/21/24 08:49 Lactated Ringers IV 07/21/24 18:32 150 mls/hr .Q6H40M ATA Administration Potassium Chloride 10 meq in 100 mls @ 100 mls/hr 07/21/24 09:57 06/07/25 11:31 Kcl Ivpb IV 07/21/24 15:56 85 mls/hr Q1H ATA Administration Insulin Human Lispro 0 unit 07/21/24 17:00 Insulin Lispro (Admelog) 1 Unit/0.01 Ml Unit SC 08/20/24 16:59 ACHS ATA Protocol Melatonin 3 mg 07/20/24 21:21 Melatonin 3 Mg Tablet PO 08/20/24 20:59 HS PRN insomnia Metoclopramide HCl 10 mg 07/20/24 20:36 07/21/24 09:41 Metoclopramide Inj 5 Mg/Ml Vial 2 Ml IVP 08/19/24 20:35 10 mg Q6H PRN Administration NAUSEA OR VOMITING Protocol Ondansetron HCl 4 mg 07/21/24 10:03 07/21/24 10:19 Ondansetron Inj 2 Mg/Ml Inj 2 Ml IVP 08/20/24 10:02 4 mg Q4HR PRN Administration NAUSEA OR VOMITING Protocol Pantoprazole Sodium 40 mg 07/21/24 09:00 07/21/24 08:12 Pantoprazole Inj 40 Mg Vial IVP 08/20/24 08:59 40 mg QDAY ATA Administration Paroxetine HCl 30 mg 07/21/24 09:00 07/21/24 08:11 Paroxetine Hcl 10 Mg Tablet PO 08/20/24 08:59 30 mg QDAY ATA Administration Sennosides 1 tab 07/20/24 20:36 Senna Tablet PO 08/19/24 20:35 QDAY PRN constipation Protocol Plan Patient is 33-year-old female with past medical history of diabetes and obesity on ozempic presented to the ED due to intractable nausea and vomiting since and was admitted for further management and evaluation. #Intractable nausea and vomiting. #Nonspecific colitis on CT scan. #History of type 2 diabetes mellitus #History of obesity on Ozempic. #Daily use of marijuana. Patient presented with nonspecific symptoms of intractable nausea and vomiting, her labs showed mildly elevated lipase and leukocytosis, CT scan showed nonspecific diffuse colitis pattern. Patient was recently restarted on Ozempic 1 mg and received her third dose day prior. When she was started initially on Ozempic her dose was gradually increased and she denied any similar symptoms. In the ED was given 3 L of IVF, Zofran and metoclopramide for nausea and vomiting with poor response. Also was given multiple doses of haloperidol. Possible causes are: Recently resumed Ozempic, cannabinoid hyperemesis, Plan: - continue on LR 150 cc/h. - An EKG was performed to evaluate QT interval; no QT prolongation was noted. 2 mg of magnesium was administered. - Metoclopramide IV, Zofran IV, and scopolamine patch ordered. - ISS - advance diet as tolerates - A1C 7.8 #UTI. #Leukocytosis-improving - Labs showed WBCs 18.1. Urinalysis showed turbid urine, specific gravity 1.036, protein 3+, glucose 1+, ketones 4+, RBCs 4, WBCs 8, presence of amorphous crystals, rare bacteria. Endorsed dysuria symptoms. Plan: - ceftriaxone 1g IV QD. - urine and blood cultures ordered. Disposition:Medsurge DVT prophylaxis: heparinSC GI prophylaxis: PPI Diet: clear(advance as tolerates) Lines: PIV CODE STATUS:Full code Patient care was discussed with attending physician Dr. Jose Perez MD PGY-2 I have carefully reviewed this document. Due to imperfections in the voice software, there could be grammatical errors including phonetic/typographic errors. This in no way compromises the medical care the patient is receiving
[2024-07-21] MEDS: PROMETHAZINE INJ 12.5 MG in SODIUM CHLORIDE 0.9% 50 ML 2.5 MG IV (12:13)
--- NOTE | 2024-07-21 12:42 | PC.NURSE ---
Dr. Perez aware Phenergan was helpful in treating pt. nausea/dry heaving.
[2024-07-21] MEDS: POTASSIUM CHL 10 mEq IVPB 10 MEQ/100 ML BAG 100 MEQ IV ×3 (14:04→16:51)
[2024-07-21] MEDS: DiphenhydrAMINE INJ 50 MG/ML VIAL 12.5 MG IVP (14:41)
--- NOTE | 2024-07-21 15:40 | PD.RESEVENT ---
Documentation for date of: 07/21/24 Event Note Event Note: Rapid response was initiated due to the patient's complaints of shortness of breath and palpitations. Upon evaluation, the patient was hemodynamically stable, with oxygen saturation at 99%, respiratory rate within normal limits, and both blood pressure and heart rate within normal parameters. The patient continued to report shortness of breath; however, symptoms appeared to be more consistent with a panic attack rather than a somatic or physiological cause. It was noted that the patient had received Benadryl approximately 30 minutes prior to evaluation. During the assessment and interview, the patient was able to calm down. We will continue with the current management plan, and it is anticipated that rest may help alleviate her anxiety symptoms. Patient care was discussed with attending physician Dr. Jose Perez MD PGY-2 I have carefully reviewed this document. Due to imperfections in the voice software, there could be grammatical errors including phonetic/typographic errors. This in no way compromises the medical care the patient is receiving
[2024-07-21] MEDS: MELATONIN 3 MG TABLET PO (21:35)
[2024-07-22] VITALS: BP 153/97; PULSE 88; RESP 18; TEMP 36.7; O2SAT 97
[2024-07-22] MEDS: LORazepam 0.5 MG TABLET PO (00:14)
[2024-07-22] MEDS: ONDANSETRON INJ 2 MG/ML INJ 2 ML 4 MG IVP ×4 (02:10→17:33)
[2024-07-22 04:00] VITALS: BP 149/97; PULSE 79; RESP 18; TEMP 36.7; O2SAT 99
[2024-07-22] MEDS: METOCLOPRAMIDE INJ 5 MG/ML VIAL 2 ML 10 MG IVP (04:51)
[2024-07-22 05:59] LABS: Basophils % (Auto) 0 % (0-2.5); Eosinophils % (Auto) 0 % (0-10); Hematocrit 41.8 % (36.0-46.0); Hemoglobin 14.3 g/dL (12.0-16.0); Immature Granulocytes % (Auto) 0 % (0-0); Immature Granulocytes Auto 0.03 Thou/mm3 (0.00-0.00); Lymphocytes % (Auto) 18 % (10-50); Mean Corpuscular HGB Conc 34.2 g/dl (31.0-37.0); Mean Corpuscular Hemoglobin 31.4 pg (25.0-35.0); Mean Corpuscular Volume 92 fL (80-100); Monocytes # (Auto) 0.7 Thou/mm3 (0.0-0.8); Monocytes % (Auto) 7 % (0-12); Neutrophils % (Auto) 75 % (37-80); Nucleated Red Blood Cell % 0 /100 WBC (0); Platelet Count 268 Thou/mm3 (140-440); RDW Standard Deviation 43.1 fL (36.4-46.3); Red Blood Count 4.55 Miln/mm3 (4.00-5.20); White Blood Count 10.8 Thou/mm3 (3.6-11.0)
[2024-07-22 07:33] LABS: Albumin, Serum 4.5 gm/dL (3.5-5.0); Anion Gap 15 (7-16); BUN/Creatinine Ratio 7 Ratio (12-20); Blood Urea Nitrogen 5 mg/dL (9-23); Calcium 9.1 mg/dL (8.3-10.6); Calcium (Corrected) 9.1 mg/dL (8.5-10.1); Carbon Dioxide 25.7 mMol/L (20.0-31.0); Chloride 100 mMol/L (98-107); Creatinine (Component) 0.7 mg/dL (0.6-1.3); Estimated Creatinine Clearance 119.2 mL/min (>60); Glucose 164 mg/dL (74-106); Magnesium 2.3 mg/dL (1.6-2.6); Osmolality,Calculated 282 (275-295); Phosphorous 2.5 mg/dL (2.4-5.1); Potassium 3.7 mMol/L (3.4-5.1); Sodium 141 mMol/L (136-145); eGFR > 60 See Note
[2024-07-22 07:37] VITALS: BP 140/95; PULSE 86; RESP 18; TEMP 36.9; O2SAT 97
[2024-07-22] MEDS: INSULIN LISPRO (AdmeLOG) 1 UNIT/0.01 ML UNIT SC ×4 (07:37→20:39)
[2024-07-22] MEDS: PARoxetine HCL 10 MG TABLET 30 MG PO (08:04)
[2024-07-22] MEDS: cefTRIAXone/D5w 1gm IV premix 1 GM/50 ML BAG IV (08:05)
[2024-07-22] MEDS: HEPARIN SOD INJ 5000 UNIT/ML VIAL SC (08:05)
[2024-07-22] MEDS: PANTOPRAZOLE INJ 40 MG VIAL IVP (08:05)
--- NOTE | 2024-07-22 09:42 | PC.SS ---
Patient Ashlee Richardson is a 33 Year old female admitted for Intractable NV, Dehydration.SS made contact with patient at bedside? to complete initial and discuss discharge disposition. Role and reason for the contact was explained to Patient. Demographic information was verified.?Patient reports she lives at home with family. Pt? identified her mother, Chiquis Richardson as her surrogate decision maker [phone]. She is independent with all ADLs. Patient does not utilize any source of DME to assist with ambulation. Patient?s choice of pharmacy is [facility]. At time of discharge patient will return home, family will provide transportation. Discharge plan: Home Next of Kin: MotherChiquis PCP Pawel Tate
--- NOTE | 2024-07-22 10:53 | PC.SS ---
SS follow up note; Patient will discharge back home tomorrow. On IV Fluids.
[2024-07-22 11:26] VITALS: BP 144/98; PULSE 85; RESP 18; TEMP 36.2; O2SAT 100
--- NOTE | 2024-07-22 12:04 | ESPR_ITS ---
<Statement entered by Eden Rivera MD - 08/03/24 14:04> I reviewed above note and agree with findings and plans. I have also personally examined the patient with medicine team and went over assessment and plan with medical team including tech intern and resident physician. Documentation for date of: 07/22/24 Subjective Subjective Interval history: Patient was seen and examined at bedside. No acute overnight events, continue complaining of dry heaves, nausea, however symptoms improved compared to yesterday, and controlled with IVIG emetics, continue current management, the vitals are stable, labs insignificant, electrolytes within normal limits, patient was encouraged to start eating, increase p.o. hydration, will monitor the symptoms and anticipate discharge in next 24 hours. Otherwise patient appears hemodynamically stable. Exam Vital Signs Temp Pulse Resp BP Pulse Ox O2 Del Method FiO2 97.2 F 85 18 144/98 H 100 Room Air 95 07/22/24 11:26 07/22/24 11:26 07/22/24 11:26 07/22/24 11:26 07/22/24 11:07/22/24 11:07/21/24 15:53 Narrative Exam GENERAL: no acute distress, AAO x3, well nourished. HEENT: Head AT/ NC. Mucous membranes moist. PERRL. NECK: Supple, no lymphadenopathy, no carotid bruits. CARDIOVASCULAR: RRR. Normal S1/S2, No m/r/g. No pitting edema of bilateral LEs. RESPIRATORY: CTAB. No wheezing, rhonchi, crackles. GASTROINTESTINAL: Abdomen soft, non tender no palpable masses. Bowel sounds present in all 4 quadrants. MUSCULOSKELETAL:? No cyanosis or edema, no visible joint swelling. NEUROLOGICAL: CN II-XII grossly intact. No focal deficits. Sensation intact, symmetric. PSYCHIATRIC: Awake and alert, not agitated, normal mood and affect. INTEGUMENTARY: No obvious rashes, no jaundice, normal turgor. Objective Labs 07/22/24 04:53 07/22/24 04:53 Labs: Laboratory Results - last 24 hr 07/22/24 04:53 WBC 10.8 D RBC 4.55 Hgb 14.3 Hct 41.8 MCV 92 MCH 31.4 MCHC 34.2 RDW Std Deviation 43.1 Plt Count 268 Neut % (Auto) 75 Lymph % (Auto) 18 Gage % (Auto) 7 Eos % (Auto) 0 Baso % (Auto) 0 Neut # (Auto) 8.0 H Lymph # (Auto) 2.0 Gage # (Auto) 0.7 Eos # (Auto) 0.0 Baso # (Auto) 0.0 Immature Gran # (Auto) 0.03 H Absolute Nucleated RBC 0.00 Immature Gran % 0 Nucleated RBC % 0 Sodium 141 Potassium 3.7 D Chloride 100 Carbon Dioxide 25.7 Anion Gap 15 BUN 5 L Creatinine 0.7 Estim Creat Clear Calc 119.2 eGFR > 60 BUN/Creatinine Ratio 7 L Glucose 164 H Calculated Osmolality 282 Calcium 9.1 Corrected Calcium 9.1 Phosphorus 2.5 Magnesium 2.3 Albumin 4.5 ABG Interpretation ABG results: 07/20/24 06:15 VBG pH 7.41 VBG pCO2 42 VBG pO2 38 VBG Base Excess 2 Quality Measures Quality Measures VTE prophylaxis Assessment & Plan Assessment Current Active Medications: Generic Name Dose Route Start Last Admin Trade Name Freq PRN Reason Stop Dose Admin Acetaminophen 650 mg 07/20/24 20:36 Acetaminophen 325 Mg Tablet PO 08/19/24 20:35 Q6H PRN Fever >101.5 Acetaminophen 650 mg 07/20/24 20:36 Acetaminophen 325 Mg Tablet PO 08/19/24 20:35 Q6H PRN PAIN SCALE 1-3 (mild Capsaicin 0 gm 07/21/24 01:30 07/22/24 05:07 Capsaicin Cr 60 Gm Tube TOP 08/20/24 01:29 Not Given TID ATA Dextrose 25 ml 07/20/24 22:41 Dextrose 50%-Water Inj 50 Ml Syringe IV 08/19/24 22:40 Q15MIN PRN BG 50-70 responsive npo pt Dextrose 50 ml 07/20/24 22:41 Dextrose 50%-Water Inj 50 Ml Syringe IV 08/19/24 22:40 Q15MIN PRN BG <50 OR BG <70 & pt unresponsive Glucagon 1 mg 07/20/24 22:41 Glucagon Inj 1 Mg Vial IM Q15MIN PRN BG <70, and no IV access Heparin Sodium (Porcine) 5,000 unit 07/20/24 21:00 07/22/24 08:05 Heparin Sod Inj 5000 Unit/Ml Vial SC 08/03/24 20:59 5,000 unit Q12HR ATA Administration Ceftriaxone Sodium/Dextrose 1 gm in 50 mls @ 100 mls/hr 07/20/24 21:20 07/22/24 08:05 Rocephin/D5w 1gm Iv Premix IV 07/27/24 21:19 100 mls/hr QDAY ATA Administration Insulin Human Lispro 0 unit 07/21/24 17:00 07/22/24 11:26 Insulin Lispro (Admelog) 1 Unit/0.01 Ml Unit SC 08/20/24 16:59 1 unit ACHS ATA Administration Protocol Melatonin 3 mg 07/20/24 21:21 07/21/24 21:35 Melatonin 3 Mg Tablet PO 08/20/24 20:59 3 mg HS PRN Administration insomnia Metoclopramide HCl 10 mg 07/20/24 20:36 07/22/24 04:51 Metoclopramide Inj 5 Mg/Ml Vial 2 Ml IVP 08/19/24 20:35 10 mg Q6H PRN Administration NAUSEA OR VOMITING Protocol Ondansetron HCl 4 mg 07/21/24 10:03 07/22/24 10:27 Ondansetron Inj 2 Mg/Ml Inj 2 Ml IVP 08/20/24 10:02 4 mg Q4HR PRN Administration NAUSEA OR VOMITING Protocol Pantoprazole Sodium 40 mg 07/21/24 09:00 07/22/24 08:05 Pantoprazole Inj 40 Mg Vial IVP 08/20/24 08:59 40 mg QDAY ATA Administration Paroxetine HCl 30 mg 07/21/24 09:00 07/22/24 08:04 Paroxetine Hcl 10 Mg Tablet PO 08/20/24 08:59 30 mg QDAY ATA Administration Sennosides 1 tab 07/20/24 20:36 Senna Tablet PO 08/19/24 20:35 QDAY PRN constipation Protocol Plan Patient is 33-year-old female with past medical history of diabetes and obesity on ozempic presented to the ED due to intractable nausea and vomiting since and was admitted for further management and evaluation. #Intractable nausea and vomiting. #Nonspecific colitis on CT scan. #History of type 2 diabetes mellitus #History of obesity on Ozempic. #Daily use of marijuana. Patient presented with nonspecific symptoms of intractable nausea and vomiting, her labs showed mildly elevated lipase and leukocytosis, CT scan showed nonspecific diffuse colitis pattern. Patient was recently restarted on Ozempic 1 mg and received her third dose day prior. When she was started initially on Ozempic her dose was gradually increased and she denied any similar symptoms. In the ED was given 3 L of IVF, Zofran and metoclopramide for nausea and vomiting with poor response. Also was given multiple doses of haloperidol. Possible causes are: Recently resumed Ozempic, cannabinoid hyperemesis, Plan: - continue on LR 150 cc/h. - An EKG was performed to evaluate QT interval; no QT prolongation was noted. 2 mg of magnesium was administered. - Metoclopramide IV, Zofran IV, and scopolamine patch ordered. - ISS - advance diet as tolerates - A1C 7.8 - 07/22/2024, continue monitor patient signs of symptoms, patient still complaining of intractable nausea and vomiting, however improved since yesterday, continue antiemetics, will anticipate discharge in next 24 hours #UTI. #Leukocytosis-improving - Labs showed WBCs 18.1. Urinalysis showed turbid urine, specific gravity 1.036, protein 3+, glucose 1+, ketones 4+, RBCs 4, WBCs 8, presence of amorphous crystals, rare bacteria. Endorsed dysuria symptoms. Plan: - ceftriaxone 1g IV QD. - urine pending, 24-hour blood culture still pending Disposition:Medsurge DVT prophylaxis: heparinSC GI prophylaxis: PPI Diet: clear(advance as tolerates) Lines: PIV CODE STATUS:Full code Patient care was discussed with attending physician Dr. Miguel Perez MD PGY-2 I have carefully reviewed this document. Due to imperfections in the voice software, there could be grammatical errors including phonetic/typographic errors. This in no way compromises the medical care the patient is receiving
[2024-07-22 15:58] VITALS: BP 147/82; PULSE 77; RESP 17; TEMP 37; O2SAT 98
[2024-07-22] MEDS: DiphenhydrAMINE ELIX 25 MG/10 ML UDC PO (17:07)
[2024-07-22 20:00] VITALS: BP 150/92; PULSE 78; RESP 18; TEMP 36.2; O2SAT 97
[2024-07-22] MEDS: hydrOXYzine HCL 25 MG TABLET PO (22:43)
[2024-07-22] MEDS: MELATONIN 3 MG TABLET PO (23:43)
[2024-07-23] VITALS: BP 134/90; PULSE 88; RESP 18; TEMP 37; O2SAT 95
[2024-07-23 04:00] VITALS: BP 135/90; PULSE 86; RESP 18; TEMP 37; O2SAT 98
[2024-07-23] MEDS: DiphenhydrAMINE INJ 50 MG/ML VIAL 25 MG IVP (04:03)
[2024-07-23 05:41] LABS: Basophils % (Auto) 0 % (0-2.5); Eosinophils # (Auto) 0.1 Thou/mm3 (0.0-0.5); Eosinophils % (Auto) 1 % (0-10); Hematocrit 42.6 % (36.0-46.0); Hemoglobin 14.9 g/dL (12.0-16.0); Immature Granulocytes % (Auto) 1 % (0-0); Immature Granulocytes Auto 0.08 Thou/mm3 (0.00-0.00); Lymphocytes # (Auto) 2.2 Thou/mm3 (1.0-4.8); Lymphocytes % (Auto) 23 % (10-50); Mean Corpuscular Hemoglobin 32.1 pg (25.0-35.0); Mean Corpuscular Volume 92 fL (80-100); Monocytes # (Auto) 0.8 Thou/mm3 (0.0-0.8); Monocytes % (Auto) 8 % (0-12); Neutrophils # (Auto) 6.2 Thou/mm3 (1.8-7.7); Neutrophils % (Auto) 66 % (37-80); Nucleated Red Blood Cell % 0 /100 WBC (0); Platelet Count 266 Thou/mm3 (140-440); RDW Standard Deviation 42.6 fL (36.4-46.3); Red Blood Count 4.64 Miln/mm3 (4.00-5.20); White Blood Count 9.5 Thou/mm3 (3.6-11.0)
[2024-07-23 06:12] LABS: Albumin, Serum 4.5 gm/dL (3.5-5.0); Anion Gap 17 (7-16); BUN/Creatinine Ratio 6 Ratio (12-20); Blood Urea Nitrogen 5 mg/dL (9-23); Calcium 9.1 mg/dL (8.3-10.6); Calcium (Corrected) 9.1 mg/dL (8.5-10.1); Carbon Dioxide 25.8 mMol/L (20.0-31.0); Chloride 100 mMol/L (98-107); Creatinine (Component) 0.8 mg/dL (0.6-1.3); Estimated Creatinine Clearance 104.3 mL/min (>60); Glucose 142 mg/dL (74-106); Magnesium 2.2 mg/dL (1.6-2.6); Osmolality,Calculated 284 (275-295); Phosphorous 3.6 mg/dL (2.4-5.1); Potassium 3.1 mMol/L (3.4-5.1); Sodium 143 mMol/L (136-145); eGFR > 60 See Note
[2024-07-23] MEDS: INSULIN LISPRO (AdmeLOG) 1 UNIT/0.01 ML UNIT SC (07:48)
[2024-07-23 08:00] VITALS: BP 124/87; PULSE 82; RESP 16; TEMP 36.4; O2SAT 97
[2024-07-23] MEDS: POTASSIUM CHLORIDE 10% 20 MEQ/15 ML UDC 40 MEQ PO (09:04)
[2024-07-23] MEDS: PARoxetine HCL 10 MG TABLET 30 MG PO (09:04)
[2024-07-23] MEDS: PANTOPRAZOLE INJ 40 MG VIAL IVP (09:08)
[2024-07-23] MEDS: cefTRIAXone/D5w 1gm IV premix 1 GM/50 ML BAG IV (09:08)
[2024-07-23] MEDS: POTASSIUM CHLORIDE 10% 20 MEQ/15 ML UDC PO (11:17)
--- NOTE | 2024-07-23 11:58 | ESDS_ITS ---
<Statement entered by Maryellen Lazo DO - 07/24/24 07:25> I, Maryellen Lazo DO, attest that I was physically present for the hogan portions of the service and evaluated the patient with the resident and I reviewed and discussed the case with the resident and agree with the resident's findings and plans of care as documented above Planned Discharge Date 07/23/24 DS: Providers Provider Date of admission: 07/22/24 14:09 Primary care physician: Pawel Tate MD Admitting Provider: Hector Biggs MD Attending Provider on Admission: Hector Biggs MD Attending Provider on DC: Karan Lazcano MD Discharging Provider: Karan Lazcano MD DS: Diagnosis Problem List Completed Was Problem List Reviewed/Reconciled?: Yes Hospital Course Hospital Course Hospital course: Ashlee Richardson is a 33-year-old female with a past medical history of diabetes and obesity who presented to the ED for intractable nausea and vomiting for 1 day prior to admission. 2 days prior to admission she received her third dose of Ozempic for weight loss, and has been prescribed Ozempic for more than a year but was discontinued around 3 months ago and recently restarted. When she was reinitiated, her dose was gradually increased but started immediately at 1 mg. Nausea and vomiting started suddenly in the morning and did not resolve and had poor p.o. intake as well, and thus came to the ED for evaluation. Denied any bloody emesis, blood per rectum, but she does endorse smoking marijuana daily. CT showed nonspecific, diffuse colitis pattern. She was started on IVF, Zofran, Reglan, and scopolamine patch. Throughout hospital course, symptoms improved and last day of admission she denied any nausea or vomiting. Leukocytosis improved to within normal limits, vital signs remained stable, but K noted to be low and was repleted. Renal function remained normal. She was recommended to refrain from marijuana use as well as Ozempic due to her presenting symptoms and follow-up with her PCP within 1 week of discharge. Diagnoses during admission: #Intractable nausea and vomiting #Cannabis hyperemesis syndrome versus adverse drug reaction / ozempic #Nonspecific colitis on CT scan #History of type 2 diabetes mellitus #History of obesity on Ozempic #Daily marijuana use #UTI #Leukocytosis Discharge instructions: Take cephalexin twice daily for three more days to finish antibiotic course. Please refrain from marijuana use. Please stop use of Ozempic due to nausea and vomiting. Follow up with PCP within 1 week of discharge. ----- Plan discussed with attending physician Dr. Clifton Lazcano MD PGY-1 Internal Medicine Time Spent with Patient Time attestation: Total time spent providing and/or coordinating discharge services: Time spent: Greater than 30 minutes Exam Vital Signs Temp Pulse Resp BP Pulse Ox O2 Del Method FiO2 97.6 F 82 16 124/87 H 97 Room Air 95 07/23/24 08:00 07/23/24 08:00 07/23/24 08:00 07/23/24 08:00 07/23/24 08:00 07/23/24 08:00 07/21/24 15:53 Narrative Exam GENERAL: no acute distress, AAO x3, well nourished. HEENT: Head AT/ NC. Mucous membranes moist. PERRL. NECK: Supple, no lymphadenopathy, no carotid bruits. CARDIOVASCULAR: RRR. Normal S1/S2, No m/r/g. No pitting edema of bilateral LEs. RESPIRATORY: CTAB. No wheezing, rhonchi, crackles. GASTROINTESTINAL: Abdomen soft, non tender no palpable masses. Bowel sounds present in all 4 quadrants. MUSCULOSKELETAL:? No cyanosis or edema, no visible joint swelling. NEUROLOGICAL: CN II-XII grossly intact. No focal deficits. Sensation intact, symmetric. PSYCHIATRIC: Awake and alert, not agitated, normal mood and affect. INTEGUMENTARY: No obvious rashes, no jaundice, normal turgor. Discharge Plan Plan Patient Disposition: HOME (Self Care) Patient condition on transfer: Stable Care Plan Goals: Take cephalexin twice daily for three more days to finish antibiotic course. Please refrain from marijuana use. Please stop use of Ozempic due to nausea and vomiting. Follow up with PCP within 1 week of discharge. Prescriptions/Referrals Prescriptions/Med Rec: New cephalexin 500 mg capsule 500 mg PO BID 3 Days Qty: 6 0RF Continued paroxetine HCl 30 mg Tablet 30 mg PO DAILY metformin 1,000 mg tablet 1,000 mg PO BID Patient Comments: TAKE 1 TABLET BY MOUTH TWICE A DAY WITH A MEAL FOR 90 DAYS norethindrone (contraceptive) [Namita] 0.35 mg Tablet 0.35 mg PO QDAY Referrals: Pawel Tate MD [Primary Care Provider] - Patient/Caregiver Discharge Instructions Other Discharge Activity Instructions:: Please refrain from marijuana use. Please stop use of Ozempic due to nausea and vomiting Follow up with PCP within 1 week of discharge Education Materials: ED Vomiting (Adult) Print Language: Italian Stand Alone Forms: Jen Award Info., Patient Portal Info Letter Discharge Order Discharge Orders: Discharge (Routine); Ordered 07/23/24 Ordered By: Karan Lazcano Quality Discharge Quality Measures VTE prophylaxis
== END 2024-07-23 11:54 | disposition home or self-care (01) | DRG 249 ==
LOC: SERX 19:02 → SERHOLD 20:50 → S3SX 07-23 06:22
PROVIDERS: Physician Assistant; Student in an Organized Health Care Education/Training Program; Admitting Provider Student in an Organized Health Care Education/Training Program; Emergency Provider Emergency Medicine; PCP Family Medicine; Visit Provider Student in an Organized Health Care Education/Training Program
DX: K52.9 Noninfective gastroenteritis and colitis, unspecified (principal); E11.9 Type 2 diabetes mellitus without complications; E66.9 Obesity, unspecified; F12.90 Cannabis use, unspecified, uncomplicated; N39.0 Urinary tract infection, site not specified; E83.42 Hypomagnesemia; E87.6 Hypokalemia; Z79.84 Long term (current) use of oral hypoglycemic drugs; Z68.30 Body mass index [BMI] 30.0-30.9, adult
CPT/HCPCS: 36415; 74177; 80048; 80053; 80069; 80307; 81001; 81025; 82010; 82803; 83036; 83605; 83690; 83735; 84145; 85025; 87040; 87086; 93005; 96374; 96375; 96376; 99285; A4649; G0378; J0696; J0780; J1200; J1630; J1644; J1815; J2405; J2470; J2550; J2765; J3475; J3480; J7030; J7120; Q9967; A9270

== ENCOUNTER 2024-07-29 01:03 | Emergency (ER) | payer MEDICAID, SELFPAY ==
[2024-07-29] VITALS (17 sets, daily range): BP systolic 108–137; BP diastolic 65–101; PULSE 83–102; RESP 0–23; TEMP 36.7–37.2; O2SAT 94–99; BMI 29.8
--- NOTE | 2024-07-29 01:36 | EDNOTE_ITS ---
ED Psych RME/HPI General Chief Complaint: Anxiety Stated Complaint: HAVEN'T SLEPT, NAUSEA, VOMITING Time Seen by Provider: 07/29/24 01:34 Arrival date/time: 07/29/24 01:03 RME / HPI RME / HPI Narrative: This section includes all my notes and documentations, including HPI, PE, and ED course. Elder Jackson MD HPI: 33 y/o female with Hx of Anxiety and Depression presents suicidal thoughts for several days. Was hospitalized here about a week ago with intractable vomiting, possibly related to marijuana use. She also has type II DM. Since being discharged, patient has not been sleeping. With increased suicidal thoughts. Has thoughts of suicide at times but declines to share the details. Denies visual or auditory hallucinations. No other complaints. ROS: All negative except as documented in HPI. Physical Exam: General:? Alert and oriented.? Appears severely anxious. Eyes:? Conjunctivae and lids clear.? EOMI.? PERRL. ENT:? No nasal congestion.? Neck:? Supple.? No carotid bruit.? No JVD.?? Heart: Sinus tachycardia noted. Not Lungs:? No respiratory distress.? Good air movement.? No rhonchi, wheezing, rales.?? Abdomen:? Soft and nontender.? Normal bowel sounds.? No distension.? No rebound or guarding.?? Back:? No CVA tenderness.?? Legs:? No clubbing, cyanosis, edema.? Skin:? Warm and dry.?? Neuro:? Alert and oriented X 3.? Cranial Nerves II-XII grossly intact.? No peripheral motor deficits. Patient requested help for anxiety and insomnia. Xanax 1 mg given, no improvement noted. Oral Haldol 10 mg and oral metoprolol 100 mg given. Significant treatment noted. I reviewed all diagnostic test results: Blood tests and urine tests unremarkable. At this point, diagnoses include: Suicidal ideation. Patient is medically cleared. At 6 AM on 07/29/24, the care of the patient was transferred to Dr. Brown, pending evaluation by our ED Assistant Terminal Manager. Elder Jackson MD Related Data Home Medications ?Medication ?Instructions ?Recorded ?Confirmed metformin 1,000 mg tablet 1,000 mg PO BID 06/19/2109/07 norethindrone (contraceptive) 0.35 0.35 mg PO QDAY 08/0507/21/24 mg tablet (Namita) paroxetine HCl 30 mg tablet 30 mg PO DAILY 06/19/21 Allergies Allergy/AdvReac Type Severity Reaction Status Date / Time No Known Allergies Allergy Verified 07/29/24 01:06 Review of Systems Review of Systems Systems Reviewed: All systems reviewed, normal except as documented Past Medical History Past Medical History NEUROLOGIC: Positive Head Trauma GASTROINTESTINAL: Positive Gastrointestinal Disorders and Gastroesophageal Reflux Disease REPRODUCTIVE: Positive Previous Pregnancies ENT: Positive Head Trauma ENDOCRINE: Positive Endocrine Disorders and Diabetes Mellitus Type 2 PSYCHO/SOCIAL: Positive Depression, Anxiety and Depression Family History FAMILY HISTORY: Positive Family Psychiatric Problems, Family Respiratory Disorders, Family Cardiac Disorders and Family Surgery Surgical History SURGICAL: Positive Tubal Ligation Social History SMOKING STATUS: Former smoker SECOND HAND EXPOSURE: Yes (mother, father and brother) ED Exam Narrative Physical exam: Refer to HPI above Course Quality Measures none Orders Category Date Time Status Referral Psych Eval Stat Cons 07/29/24 01:36 Active Acetaminophen Stat Lab 07/29/24 01:48 Completed Alcohol, Blood Medical Stat Lab 07/29/24 01:48 Completed Bilirubin,Direct Stat Lab 07/29/24 01:48 Completed CBC Stat Lab 07/29/24 01:48 Completed CMP [Comprehensive Metabolic Panel] Stat Lab 07/29/24 01:48 Completed Drug Screen,Urine Stat Lab 07/29/24 01:55 Completed Free T4 (Free Thyroxine) Stat Lab 07/29/24 01:48 Completed HCG Qualitative,Urine Stat Lab 07/29/24 02:12 Completed Magnesium Stat Lab 07/29/24 01:48 Completed Salicylate Stat Lab 07/29/24 01:48 Completed TSH [Thyroid Stimulating Hormone] Stat Lab 07/29/24 01:48 Completed UA, C/S IF [Urinalysis, C/S if Indicated] Stat Lab 07/29/24 02:12 Completed ALPRazoLAM [Xanax] Med 07/29/24 01:36 Discontinued 1 mg PO X1 ONE Metoprolol Tartrate [Lopressor] Med 07/29/24 02:57 Discontinued 100 mg PO X1 ONE haloperidoL [Haldol] Med 07/29/24 02:57 Discontinued 10 mg PO X1 ONE Vital Signs Vital signs: Vital Signs Temperature 98.1 F 07/29/24 01:23 Pulse Rate 102 H 07/29/24 01:23 Respiratory Rate 18 07/29/24 01:23 Blood Pressure 137/90 H 07/29/24 01:23 Pulse Oximetry (%) 98 07/29/24 01:23 Oxygen Delivery Method Room Air 07/29/24 01:23 Psych MDM Narrative MDM Narrative:: Scribe Attestation: Nkechi Anders, am scribing for and in the presence of Dr. Jackson. Provider Notation: Although this document has been carefully reviewed, there may still be some phonetic and other typographical errors. These errors are purely grammatical due to imperfections in the software program and should not be construed in any way to compromise the substance of the patient's medical care during this visit. 33 y/o female with Hx of Anxiety and Depression presents suicidal ideation with a plan x 6 days. Patient was recently hospitalized here and discharged on Tuesday. Ever since being discharged, patient has not been sleeping and has had suicidal thoughts with a plan that she does not want to openly discuss. Denies visual or auditory hallucinations. No other complaints. Patient data External records reviewed:: [facility] previous records (Reviewed prior ED records from 07/20/24. Patient was seen for Diabetes.) Clinical information provided by:: patient Social determinants that could affect healthcare access:: mental health (Anxiety/Depression) Patient has the following chronic illnesses:: Gastroesophageal Reflux Disease, Diabetes Mellitus Type 2, Depression, Anxiety How is presenting disease/condition affected by chronic disease/condition?: exacerbated by Evaluation data The following diagnostics were reviewed and interpreted by me:: lab results Lab and/or radiology exams considered but not ordered:: None Interpretation Summary: I reviewed all diagnostic test results: Blood tests and urine tests unremarkable. Medications / Prescriptions Medications or Prescriptions considered but not ordered:: None Medication administrations:: Medication Administration History Discontinued Medications Alprazolam (Alprazolam 0.25 Mg Tablet) 1 mg PO X1 ONE Stop: 07/29/24 01:37 Last Admin: 07/29/24 01:53 Dose: 1 mg Documented By: EE Haloperidol (Haloperidol 5 Mg Tablet) 10 mg PO X1 ONE Stop: 07/29/24 02:58 Last Admin: 07/29/24 03:09 Dose: 10 mg Documented By: CVL Metoprolol Tartrate (Metoprolol Tartrate 25 Mg Tablet) 100 mg PO X1 ONE Stop: 07/29/24 02:58 Last Admin: 07/29/24 03:14 Dose: 100 mg Documented By: Patient requested help for anxiety and insomnia. Xanax 1 mg given, no improvement noted. Oral Haldol 10 mg and oral metoprolol 100 mg given. Significant treatment noted. Consultations Consultation(s) initiated? (list below): No Diagnosis Psych Differential Diagnosis: acute psychosis, chronic schizophrenia, suicidal ideation, bipolar disorder, depression, drug-induced psychotic disorder and acute anxiety Most likely diagnosis given after review of the tests above:: Suicidal ideation Admission Indicated Admission indicated?: not indicated Explain why admission is indicated or not indicated:: No psychiatric service available here at this facility. Admission Request Was there a request for admission?: No Disposition Plan Disposition Plan: other (specify) (At 6 AM on 07/29/24, the care of the patient was transferred to Dr. Brown, pending evaluation by our ED Assistant Terminal Manager. ) Discharge Plan Prescriptions/Referrals Prescriptions/Med Rec: No Action paroxetine HCl 30 mg Tablet 30 mg PO DAILY metformin 1,000 mg tablet 1,000 mg PO BID Patient Comments: TAKE 1 TABLET BY MOUTH TWICE A DAY WITH A MEAL FOR 90 DAYS norethindrone (contraceptive) [Namita] 0.35 mg Tablet 0.35 mg PO QDAY Referrals: Pawel Tate MD [Primary Care Provider] - In 1 week Problem List Clinical Impression: Suicidal ideation Patient/Caregiver Discharge Instructions Print Language: Palestinian
[2024-07-29] MEDS: ALPRazoLAM 0.25 MG TABLET 1 MG PO (01:53)
[2024-07-29 02:11] LABS: Basophils # (Auto) 0.1 Thou/mm3 (0.0-0.2); Basophils % (Auto) 0 % (0-2.5); Eosinophils # (Auto) 0.2 Thou/mm3 (0.0-0.5); Eosinophils % (Auto) 1 % (0-10); Hematocrit 45.9 % (36.0-46.0); Hemoglobin 16.8 g/dL (12.0-16.0); Immature Granulocytes % (Auto) 0 % (0-0); Immature Granulocytes Auto 0.06 Thou/mm3 (0.00-0.00); Lymphocytes # (Auto) 2.1 Thou/mm3 (1.0-4.8); Lymphocytes % (Auto) 13 % (10-50); Mean Corpuscular HGB Conc 36.6 g/dl (31.0-37.0); Mean Corpuscular Hemoglobin 32.4 pg (25.0-35.0); Mean Corpuscular Volume 88 fL (80-100); Monocytes # (Auto) 0.7 Thou/mm3 (0.0-0.8); Monocytes % (Auto) 5 % (0-12); Neutrophils # (Auto) 12.4 Thou/mm3 (1.8-7.7); Neutrophils % (Auto) 80 % (37-80); Nucleated Red Blood Cell % 0 /100 WBC (0); Platelet Count 313 Thou/mm3 (140-440); RDW Standard Deviation 39.8 fL (36.4-46.3); Red Blood Count 5.19 Miln/mm3 (4.00-5.20); White Blood Count 15.5 Thou/mm3 (3.6-11.0)
[2024-07-29 02:20] LABS: Collection Type, Urine Clean Catch
[2024-07-29 02:26] LABS: HCG Qualitative,Urine Negative
[2024-07-29 02:28] LABS: Bilirubin,Urine Negative (Negative); Blood,Urine Negative (Negative); Clarity,Urine Clear (Clear/Hazy); Color,Urine Lt-Yellow (Lt Yel-Yel); Culture Indicated,Urine Not Indicated; Glucose, Urine 4+ (Negative); Ketones,Urine 1+ (Negative); Leukocyte Esterase,Urine Negative (Negative); Nitrite,Urine Negative (Negative); Protein,Urine Negative (Neg - Trace); RBC,Urine 1 /hpf (0-3); Specific Gravity,Urine 1.029 (1.001-1.035); Squamous Epithelial Cell,Urine 3 /hpf (0-5); Urobilinogen,Urine Negative mg/dL (0.0-1.0); WBC,Urine 2 /hpf (0-5)
[2024-07-29 02:31] LABS: Acetaminophen < 2.0 mcg/mL (10.0-20.0); Alanine Aminotransferase 27 U/L (10-49); Albumin, Serum 5.1 gm/dL (3.5-5.0); Albumin/Globulin Ratio 1.8 (1.2-2.2); Alcohol, Blood Medical < 3.0 mg/dL (0-10.0); Alkaline Phosphatase 56 U/L (46-116); Anion Gap 14 (7-16); Aspartate Amino Transferase 21 U/L (0-34); BUN/Creatinine Ratio 11 Ratio (12-20); Bilirubin,Direct 0.1 mg/dL (0.0-0.3); Bilirubin,Total 0.5 mg/dL (0.3-1.2); Blood Urea Nitrogen 9 mg/dL (9-23); Calcium 10.1 mg/dL (8.3-10.6); Calcium (Corrected) 10.1 mg/dL (8.5-10.1); Carbon Dioxide 24.6 mMol/L (20.0-31.0); Chloride 100 mMol/L (98-107); Creatinine (Component) 0.8 mg/dL (0.6-1.3); Estimated Creatinine Clearance 103.6 mL/min (>60); Free T4 (Free Thyroxine) 1.64 ng/dL (0.89-1.76); Globulin 2.9 gm/dL (2.3-3.5); Glucose 172 mg/dL (74-106); Magnesium 1.9 mg/dL (1.6-2.6); Osmolality,Calculated 280 (275-295); Potassium 3.9 mMol/L (3.4-5.1); Salicylate < 3.0 mg/dL; Sodium 139 mMol/L (136-145); Thyroid Stimulating Hormone 2.57 uIU/mL (0.55-4.78); eGFR > 60 See Note
[2024-07-29 02:39] LABS: Amphetamine/Methamp Scrn,U Negative (Negative); Barbiturate Screen,Urine Negative (Negative); Benzodiazepines Screen,Urine Negative (Negative); Benzoylecgonine Screen, Ur Negative (Negative); Fentanyl Screen,Urine Negative (Negative); Opiate Screen,Urine Negative (Negative); THC Screen,Urine Positive (Negative)
[2024-07-29] MEDS: haloperidoL 5 MG TABLET 10 MG PO (03:09)
[2024-07-29] MEDS: METOPROLOL TARTRATE 25 MG TABLET 100 MG PO (03:14)
--- NOTE | 2024-07-29 05:17 | PC.NURSE ---
pt sitting on gurney, crying and figeting, appears upset. pt informed nurse she is tired of suffering , pt did not deny or admit to wanting to herself at this time but did state she has hx of SI 2 prior times. pt states she has taken pills in the past in attempt to end her life. Pt states she has anxiety due to poor health. provider informed and 1798 initiated. sitter placed at bedside.
--- NOTE | 2024-07-29 06:15 | PD.EDADDENDU ---
Emergency Room Addendum Addendum Narrative: 0600: Care assumed from Dr. Jackson, the previous shift emergency physician. Past medical, surgical, social and family history reviewed. Vitals and home medications reviewed. I will assume the care of the patient at this time, pending mental health evaluation and final disposition. Patient had been medically cleared by previous physician. Please refer to the emergency department record for history and examination from initial visit.?The following addendum documentation note is intended to reflect any pending information, findings, or radiology results not included in the patient?s initial chart. 0738: Patient has been evaluated by our social service coordinator. States patient is cleared to go home and has been provided with appropriate resources. Patient will be DC home.
--- NOTE | 2024-07-29 07:54 | PC.CC ---
NICOLA Ayala met with the pt at bedside with the pt in ER bed 19 and completed a face to face MH assessment, as pt is currently on a 1799. ASW introduced self, role, and reason for assessment. ASW disclosed limits of confidentiality as well. Patient appeared alert and oriented to self, place, and situation. Patient was pleasant; his mood appeared depressed; but was able to communicate and express her thoughts and feelings. Patient?s thought process was linear and organized. No signs of delusions, paranoid or AVH. Pt denies SI/HI. Pt reports that she felt increased thoughts of SI as she had not slept in a few days due to anxiety and stress. Pt reports she is dxs with Diabetes II which she admits it is not in control. Pt reports she has increased nausea and stomach issues related to her diabetes. Pt reports she has depression and anxiety in which she does not receive therapeutic services. However, pt reports she is open and willing to begin therapeutic services. Pt reports her PCP is with [facility] and stated that since she is already connected to [facility] she will schedule an appointment with a MH therapist at [facility]. Pressure Dispatcher provided pt with community resources to [facility], [facility], [facility], and provided her a community resource guide to MH services in [facility]. Pt was receptive. Pt reports she does not want to end her life, but feels at times her diabetes is so out of control that it makes her depressed and then has thoughts that sometimes she would be better off not around. Pt reports she has not plan or intent to harm herself. Pt reports she has strong family support, has reasons to live as she does not want to disappoint her family and has fear of . Pt was viewed to be honest and genuine in her answers. Pt was viewed to have nausea and reports nausea increases with high blood sugar, stress, and stomach issues. Pt reports she will also f/u with her PCP for a reassessment of her diabetes dx. Safety plan is for pt to f/u with therapeutic services, f/u with PCP and create a plan to manage her diabetes. ASW has no other concerns for the pt at this time and assessment is complete.
== END 2024-07-29 08:30 | disposition home or self-care (01) ==
PROVIDERS: Emergency Provider Emergency Medicine; PCP Family Medicine
DX: R45.851 Suicidal ideations (principal)
CPT/HCPCS: 36415; 80053; 80307; 80320; 80329; 81001; 81025; 82248; 83735; 84439; 84443; 84484; 85025; 96127; 99284; A9270; G0480

== ENCOUNTER 2024-07-30 21:25 | Emergency (ER) | payer MEDICAID, SELFPAY ==
[2024-07-30 21:26] VITALS: BP 137/90; PULSE 102; RESP 18; TEMP 36.9; O2SAT 96; BMI 29.9
[2024-07-30] MEDS: LORazepam 0.5 MG TABLET 1 MG PO (22:19)
--- NOTE | 2024-07-30 23:01 | PD.EDSOB ---
ED SOB =RME/HPI General Chief Complaint: Shortness of Breath/Dyspnea Stated Complaint: SOB Time Seen by Provider: 07/30/24 21:59 Arrival date/time: 07/30/24 21:25 RME / HPI RME / HPI Narrative: 33-year-old female presents to the ED with a complaint of shortness of breath. She just started a new medication today, aripiprazole, that her doctor prescribed. She did not read the package insert which indicates anxiety is a common side effect of this new medication. She denies any recent illness with fever, chills, cough, upper respiratory complaints, nausea or vomiting, diarrhea or abdominal pain. Related Data Home Medications ?Medication ?Instructions ?Recorded ?Confirmed metformin 1,000 mg tablet 1,000 mg PO BID 06/19/21 07/21/24 norethindrone (contraceptive) 0.35 0.35 mg PO QDAY 06/19/21 07/21/24 mg tablet (Namita) paroxetine HCl 30 mg tablet 30 mg PO DAILY 06/19/21 07/21/24 Allergies Allergy/AdvReac Type Severity Reaction Status Date / Time No Known Allergies Allergy Verified 07/30/24 21:28 Review of Systems Review of Systems Systems Reviewed: All systems reviewed, normal except as documented Past Medical History Past Medical History NEUROLOGIC: Positive Head Trauma; Negative Neurological Disorders, Cerebrovascular Accident, Alzheimer's Disease or Seizures CARDIAC: Negative Cardiac Disorders, Congestive Heart Failure, Edema, Cellulitis or Varicose Veins RESPIRATORY: Negative Chronic Obstructive Pulmonary Disease (COPD), Asthma, Tuberculosis, Pulmonary Embolism or Sleep Apnea GASTROINTESTINAL: Positive Gastrointestinal Disorders and Gastroesophageal Reflux Disease; Negative Hepatitis or Colorectal Cancer GENITOURINARY: Negative Genitourinary Disorders, Renal Disease or Prostate Cancer REPRODUCTIVE: Positive Previous Pregnancies; Negative Breast Cancer, Endometriosis, Genital Herpes, Gonorrhea, Pelvic Inflammatory Disease, Syphilis, Testicular Cancer or Uterine Prolapse MUSCULOSKELETAL: Negative Musculoskeletal Disorders or Bone Cancer ENT: Positive Head Trauma ENDOCRINE: Positive Endocrine Disorders and Diabetes Mellitus Type 2; Negative Diabetes Mellitus Type 1 HEMATOLOGIC: Negative Blood Disorders or Sickle Cell Disease PSYCHO/SOCIAL: Positive Depression, Anxiety and Depression OTHER HISTORY: Negative Hospitalization, Autoimmune Disease, Shingles, Falls, Blood Transfusions, Blood Transfusion Reaction, Anesthesia Reactions, Organ Transplant, Chemotherapy, Radiation Therapy, Hyperbaric Therapy, MRSA, VRSA, Vancomycin-Resistant Enterococci, Human Immunodeficiency Virus (HIV), Chicken Pox, Measles, Mumps, Rubella (Iranian Measles), Pertussis, Clostridium Difficile, Breast Cancer, Cervical Cancer, Colorectal Cancer, Lung Cancer, Ovarian Cancer, Prostate Cancer or Testicular Cancer Family History FAMILY HISTORY: Positive Family Psychiatric Problems, Family Respiratory Disorders, Family Cardiac Disorders and Family Surgery; Negative Family Gastrointestinal Problems, Family Cancer or Family Anesthesia Reaction Surgical History SURGICAL: Positive Tubal Ligation; Negative Pacemaker, Section or Organ Transplant Social History SMOKING STATUS: Current every day smoker SECOND HAND EXPOSURE: Yes (mother, father and brother) ED Exam Narrative Physical exam: Alert 33-year-old female, appears very anxious. Lungs are clear, mild tachycardia at 102, regular rhythm. TMs and oropharynx are normal, without erythema. Neck is supple, normal range of motion, no adenopathy. Abdomen is soft and nontender. Moves all extremities well. Course Course Course Narrative: 33-year-old female presents to the ED with a complaint of shortness of breath. She just started a new medication today, aripiprazole, that her doctor prescribed. She did not read the package insert which indicates anxiety is a common side effect of this new medication. She denies any recent illness with fever, chills, cough, upper respiratory complaints, nausea or vomiting, diarrhea or abdominal pain. Alert 33-year-old female, appears very anxious. Lungs are clear, mild tachycardia at 102, regular rhythm. TMs and oropharynx are normal, without erythema. Neck is supple, normal range of motion, no adenopathy. Abdomen is soft and nontender. Moves all extremities well. Patient was given Ativan 1 mg p.o. which provided improvement in her symptoms. Quality Measures none Orders Category Date Time Status LORazepam [Ativan] Med 07/30/24 22:10 Discontinued 1 mg PO X1 ONE Vital Signs Vital signs: Vital Signs Temperature 98.4 F 07/30/24 21:26 Pulse Rate 102 H 07/30/24 21:26 Respiratory Rate 18 07/30/24 21:26 Blood Pressure 137/90 H 07/30/24 21:26 Pulse Oximetry (%) 96 07/30/24 21:26 Oxygen Delivery Method Room Air 07/30/24 21:26 Shortness of Breath / Dyspnea MDM Narrative MDM Narrative:: 33-year-old female presents to the ED with a complaint of shortness of breath. She just started a new medication today, aripiprazole, that her doctor prescribed. She did not read the package insert which indicates anxiety is a common side effect of this new medication. She denies any recent illness with fever, chills, cough, upper respiratory complaints, nausea or vomiting, diarrhea or abdominal pain. Alert 33-year-old female, appears very anxious. Lungs are clear, mild tachycardia at 102, regular rhythm. TMs and oropharynx are normal, without erythema. Neck is supple, normal range of motion, no adenopathy. Abdomen is soft and nontender. Moves all extremities well. Patient was given Ativan 1 mg p.o. which provided improvement in her symptoms. Patient data External records reviewed:: [facility] previous records Clinical information provided by:: patient Social determinants that could affect healthcare access:: mental health Patient has the following chronic illnesses:: Depression, anxiety, history of suicidal ideation, marijuana use. How is presenting disease/condition affected by chronic disease/condition?: exacerbated by Evaluation data The following diagnostics were reviewed and interpreted by me:: other (specify) (None) Lab and/or radiology exams considered but not ordered:: N/A Interpretation Summary: N/A Medications / Prescriptions Medications or Prescriptions considered but not ordered:: N/A Medication administrations:: Medication Administration History Discontinued Medications Lorazepam (Lorazepam 0.5 Mg Tablet) 1 mg PO X1 ONE Stop: 07/30/24 22:11 Last Admin: 07/30/24 22:19 Dose: 1 mg Documented By: FRANCISCO Ativan 1 mg p.o. Consultations Consultation(s) initiated? (list below): No Diagnosis Shortness of Breath Differential Diagnosis: community acquired pneumonia, asthma with exacerbation and other (Depression, anxiety, medication reaction) Most likely diagnosis given after review of the tests above:: Anxiety secondary to medication reaction Admission Indicated Admission indicated?: not indicated Explain why admission is indicated or not indicated:: Patient is stable for discharge Admission Request Was there a request for admission?: No Admission Attestation Admission request attestation: N/A Disposition Plan Disposition Plan: Discharge Discharge Attestation Discharge Attestation: The patient and all family members were given an opportunity to ask questions and understood the discharge instructions. Discharge instructions specifically effects, indications for sooner follow up or return to the emergency department, and the expected course of current diagnosis. Patient condition: Stable Discharge Plan Plan Patient Disposition: HOME (Self Care) Discharge Disposition comment: Stable and improved Prescriptions/Referrals Prescriptions/Med Rec: No Action paroxetine HCl 30 mg Tablet 30 mg PO DAILY metformin 1,000 mg tablet 1,000 mg PO BID Patient Comments: TAKE 1 TABLET BY MOUTH TWICE A DAY WITH A MEAL FOR 90 DAYS norethindrone (contraceptive) [Namita] 0.35 mg Tablet 0.35 mg PO QDAY Referrals: Pawel Tate MD [Primary Care Provider] - In 1 week Problem List Clinical Impression: Anxiety reaction, Medication reaction Patient/Caregiver Discharge Instructions Education Materials: ED Anxiety Reaction, ED Drug Reaction, Other Additional Instructions: The anxiety reaction you experienced tonight is likely related to starting your new medication, aripiprazole. 17% of adults that take this medication experience anxiety related symptoms in the early stages of this medication. This reaction should subside once your body gets used to taking this medication. Follow-up with your primary care physician in 24 to 48 hours. Return to the ED for any new or worsening symptoms. Print Language: Welsh Stand Alone Forms: Jen Award Info., Patient Portal Info Letter HAILE/TARAS Supervising Physician HAILE/TARAS Supervising Physician: Dr. Sellers
== END 2024-07-30 23:19 | disposition home or self-care (01) ==
PROVIDERS: Emergency Provider Emergency Medicine; PCP Family Medicine
DX: F41.1 Generalized anxiety disorder (principal); T43.595A Adverse effect of other antipsychotics and neuroleptics, initial encounter
CPT/HCPCS: 99282; A9270

== ENCOUNTER 2024-09-02 05:18 | Emergency (ER) | payer MEDICAID, SELFPAY ==
[2024-09-02 05:19] VITALS: BP 139/95; PULSE 88; RESP 17; TEMP 36.8; O2SAT 98; BMI 31.1
--- NOTE | 2024-09-02 06:00 | PD.EDRME ---
Rapid Medical Screening Exam RME Arrival date/time: 09/02/24 05:18 Chief Complaint: Psychiatric Symptoms Time Seen by Provider: 09/02/24 05:54 Vital signs: Vital Signs Temperature 98.2 F 09/02/24 05:19 Pulse Rate 88 09/02/24 05:19 Respiratory Rate 17 09/02/24 05:19 Blood Pressure 139/95 H 09/02/24 05:19 Pulse Oximetry (%) 98 09/02/24 05:19 Oxygen Delivery Method Room Air 09/02/24 05:19 Vital signs reviewed by provider: Yes RME Narrative: 33-year-old female presents to the ED as a voluntary 5150. She states she is having suicidal thoughts and states she has a plan . She has been having these feelings for the past 2 weeks. She denies any homicidal ideation. I have greeted and performed a focused initial assessment of this patient. A comprehensive ED assessment and evaluation of the patient, analysis of all test results, and completion of the medical decision making process will be conducted by additional ED providers.
--- NOTE | 2024-09-02 07:00 | PD.EDPSYCH ---
ED Psych RME/HPI General Chief Complaint: Psychiatric Symptoms Stated Complaint: SUICIDAL THOUGHTS Time Seen by Provider: 09/02/24 05:54 Arrival date/time: 09/02/24 05:18 Limitations: no limitations RME / HPI RME / HPI Narrative: 33-year-old female presents to the ED as a voluntary 5150. She states she is having suicidal thoughts and states she has a plan . She has been having these feelings for the past 2 weeks. She denies any homicidal ideation. I have greeted and performed a focused initial assessment of this patient. A comprehensive ED assessment and evaluation of the patient, analysis of all test results, and completion of the medical decision making process will be conducted by additional ED providers. DR. ALLISON GREEN ED EVALUATION 33 year old female with history of diabetes, anxiety, depression presents to the ED with suicidal ideation. States she has felt suicidal for 2 weeks with plan [place]. Reportedly is compliant with her medications (Paxil and Abilify) and states she continues to have episodes of depression. Denies thoughts of harming others. Denies fevers, chills, chest pain, cough, shortness of breath, abdominal pain, or urinary symptoms. Patient also reports she has had brittle nails, hair loss, poor sleep, and weight loss. Denies having her thyroid hormone checked or any known thyroid problems. Related Data Home Medications ?Medication ?Instructions ?Recorded ?Confirmed metformin 1,000 mg tablet 1,000 mg PO BID 06/19/21 07/21/24 norethindrone (contraceptive) 0.35 0.35 mg PO QDAY 06/19/21 07/21/24 mg tablet (Namita) paroxetine HCl 30 mg tablet 30 mg PO DAILY 06/19/21 09/02/24 Allergies Allergy/AdvReac Type Severity Reaction Status Date / Time No Known Allergies Allergy Verified 07/30/24 21:28 Review of Systems Review of Systems Systems Reviewed: All systems reviewed, normal except as documented Past Medical History Past Medical History NEUROLOGIC: Positive Neurological Disorders and Head Trauma GASTROINTESTINAL: Positive Gastrointestinal Disorders and Gastroesophageal Reflux Disease REPRODUCTIVE: Positive Previous Pregnancies ENT: Positive Head Trauma ENDOCRINE: Positive Endocrine Disorders and Diabetes Mellitus Type 2 PSYCHO/SOCIAL: Positive Depression, Anxiety and Depression Family History FAMILY HISTORY: Positive Family Psychiatric Problems, Family Respiratory Disorders, Family Cardiac Disorders and Family Surgery Surgical History SURGICAL: Positive Tubal Ligation; Negative Pacemaker or Section Social History SMOKING STATUS: Current some day smoker SECOND HAND EXPOSURE: Yes (mother, father and brother) ED Exam General Limitations: Present no limitations General appearance: Present alert and anxious (tearful ) Head Head exam: Present atraumatic, normocephalic and normal inspection Eye Eye exam: Present normal appearance, PERRL and EOMI ENT ENT exam: Present normal exam, normal oropharynx and mucous membranes moist Neck Neck exam: Present normal inspection, full ROM and trachea midline Chest Chest inspection: Present normal inspection and symmetric chest wall rise Respiratory Respiratory exam: Present normal lung sounds bilaterally Cardiovascular Cardiovascular exam: Present regular rate, normal rhythm and normal heart sounds Abdominal Exam Abdominal exam: Present soft and normal bowel sounds Extremities Exam Extremities exam: Present normal inspection and full ROM Back Exam Back exam: Present normal inspection and full ROM Neurological Exam Neurological exam: Present alert, oriented X3 and CN II-XII intact Psychiatric Psychiatric exam: Present normal affect and normal mood Skin Skin exam: Present warm, dry, intact and normal color Course Quality Measures none Orders Category Date Time Status Diet Carbohydrate Consistent Diet 09/02/24 Breakfast Active Acetaminophen Stat Lab 09/02/24 06:42 Completed Alcohol, Blood Medical Stat Lab 09/02/24 06:42 Completed Basic Metabolic Panel Stat Lab 09/02/24 06:42 Completed CBC Stat Lab 09/02/24 06:42 Completed Drug Screen,Urine Stat Lab 09/02/24 06:31 Completed Free T4 (Free Thyroxine) Stat Lab 09/02/24 06:42 Completed HCG Qualitative,Urine Stat Lab 09/02/24 06:31 Completed Salicylate Stat Lab 09/02/24 06:42 Completed Thyroid Stimulating Hormone Stat Lab 09/02/24 06:42 Completed LORazepam [Ativan] Med 09/02/24 07:07 Discontinued 0.5 mg PO X1 ONE LORazepam [Ativan] Med 09/02/24 10:25 Discontinued 1 mg PO X1 ONE PARoxetine HCL [Paxil] Med 09/02/24 09:29 Discontinued 20 mg PO X1 ONE Vital Signs Vital signs: Vital Signs Temperature 98.2 F 09/02/24 05:19 Pulse Rate 88 09/02/24 05:19 Respiratory Rate 17 09/02/24 05:19 Blood Pressure 139/95 H 09/02/24 05:19 Pulse Oximetry (%) 98 09/02/24 05:19 Oxygen Delivery Method Room Air 09/02/24 05:19 Pulse ox is 98% on room air which is adequate. Psych MDM Narrative MDM Narrative:: ICharley, am scribing for and in the presence of Dr. Kaur. 0648: Patient has been medically cleared for mental health evaluation. 0745: piece dye worker has met with and evaluated the patient. States she is placing the patient on a 5150 hold and pending LPS facility placement. 1025: Patient reports feeling anxious, will order additional dose of Ativan. Notified by SW that the patient has been accepted by Dr. Zapata at [facility]. 1155: EMS here to transfer patient. Patient was transferred in stable condition. Patient data External records reviewed:: [facility] previous records (I reviewed ED visit on 07/30/2024 ) Clinical information provided by:: patient Social determinants that could affect healthcare access:: mental health Patient has the following chronic illnesses:: diabetes, depression, anxiety How is presenting disease/condition affected by chronic disease/condition?: exacerbated by Evaluation data The following diagnostics were reviewed and interpreted by me:: lab results Lab and/or radiology exams considered but not ordered:: None Interpretation Summary: Labs are unremarkable. UDS positive for marijuana. Medications / Prescriptions Medications or Prescriptions considered but not ordered:: None Medication administrations:: Medication Administration History Discontinued Medications Lorazepam (Lorazepam 0.5 Mg Tablet) 0.5 mg PO X1 ONE Stop: 09/02/24 07:08 Last Admin: 09/02/24 07:14 Dose: 0.5 mg Documented By: RASHAWN Lorazepam (Lorazepam 0.5 Mg Tablet) 1 mg PO X1 ONE Stop: 09/02/24 10:26 Last Admin: 09/02/24 10:38 Dose: 1 mg Documented By: RASHAWN Paroxetine HCl (Paroxetine Hcl 10 Mg Tablet) 20 mg PO X1 ONE Stop: 09/02/24 09:30 Last Admin: 09/02/24 10:39 Dose: 20 mg Documented By: RASHAWN See above Consultations Consultation(s) initiated? (list below): No Diagnosis Psych Differential Diagnosis: suicidal ideation, bipolar disorder, depression, drug-induced psychotic disorder and acute anxiety Most likely diagnosis given after review of the tests above:: Suicidal ideation Anxiety Depression Admission Indicated Admission indicated?: not indicated Admission Request Was there a request for admission?: No Disposition Plan Disposition Plan: Transfer (to [facility] ) Discharge Plan Plan Patient Disposition: [facility] Facility Discharge Disposition comment: Kobi Serrato Prescriptions/Referrals Prescriptions/Med Rec: No Action paroxetine HCl 30 mg Tablet 30 mg PO DAILY metformin 1,000 mg tablet 1,000 mg PO BID Patient Comments: TAKE 1 TABLET BY MOUTH TWICE A DAY WITH A MEAL FOR 90 DAYS norethindrone (contraceptive) [Namita] 0.35 mg Tablet 0.35 mg PO QDAY Referrals: No Primary/Family,Physician [Primary Care Provider] - In 1 week Problem List Clinical Impression: Suicidal ideation Patient/Caregiver Discharge Instructions Print Language: Zimbabwean Stand Alone Forms: Jen Award Info., Patient Portal Info Letter
[2024-09-02 07:12] LABS: Basophils # (Auto) 0.0 Thou/mm3 (0.0-0.2); Basophils % (Auto) 1 % (0-2.5); Eosinophils # (Auto) 0.1 Thou/mm3 (0.0-0.5); Eosinophils % (Auto) 2 % (0-10); Hematocrit 43.5 % (36.0-46.0); Hemoglobin 15.2 g/dL (12.0-16.0); Immature Granulocytes Auto 0.02 Thou/mm3 (0.00-0.00); Lymphocytes # (Auto) 1.6 Thou/mm3 (1.0-4.8); Lymphocytes % (Auto) 23 % (10-50); Mean Corpuscular HGB Conc 34.9 g/dl (31.0-37.0); Mean Corpuscular Hemoglobin 31.7 pg (25.0-35.0); Mean Corpuscular Volume 91 fL (80-100); Monocytes # (Auto) 0.5 Thou/mm3 (0.0-0.8); Monocytes % (Auto) 7 % (0-12); Neutrophils # (Auto) 4.7 Thou/mm3 (1.8-7.7); Neutrophils % (Auto) 68 % (37-80); Nucleated Red Blood Cell # 0.00 Thou/mm3 (0.00-0.00); Nucleated Red Blood Cell % 0 /100 WBC (0); Platelet Count 244 Thou/mm3 (140-440); RDW Standard Deviation 44.3 fL (36.4-46.3); Red Blood Count 4.80 Miln/mm3 (4.00-5.20); White Blood Count 6.9 Thou/mm3 (3.6-11.0)
[2024-09-02 07:18] VITALS: BP 125/85; PULSE 86; RESP 19; TEMP 36.6; O2SAT 96
[2024-09-02 07:31] LABS: HCG Qualitative,Urine Negative
[2024-09-02 07:46] LABS: Acetaminophen < 2.0 mcg/mL (10.0-20.0); Alcohol, Blood Medical < 3.0 mg/dL (0-10.0); Anion Gap 12 (7-16); BUN/Creatinine Ratio 10 Ratio (12-20); Blood Urea Nitrogen 6 mg/dL (9-23); Calcium 9.2 mg/dL (8.3-10.6); Carbon Dioxide 26.3 mMol/L (20.0-31.0); Chloride 104 mMol/L (98-107); Creatinine (Component) 0.6 mg/dL (0.6-1.3); Estimated Creatinine Clearance 135.9 mL/min (>60); Free T4 (Free Thyroxine) 1.48 ng/dL (0.89-1.76); Glucose 148 mg/dL (74-106); Osmolality,Calculated 283 (275-295); Potassium 3.9 mMol/L (3.4-5.1); Salicylate < 3.0 mg/dL; Sodium 142 mMol/L (136-145); Thyroid Stimulating Hormone 1.53 uIU/mL (0.55-4.78); eGFR > 60 See Note
[2024-09-02 07:46] LABS: Amphetamine/Methamp Scrn,U Negative (Negative); Barbiturate Screen,Urine Negative (Negative); Benzodiazepines Screen,Urine Negative (Negative); Benzoylecgonine Screen, Ur Negative (Negative); Fentanyl Screen,Urine Negative (Negative); Opiate Screen,Urine Negative (Negative); THC Screen,Urine Positive (Negative)
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
[2024-09-02 10:09] VITALS: BP 125/85; PULSE 89; RESP 19; TEMP 36.6; O2SAT 96
[2024-09-02 11:33] VITALS: BP 125/88; PULSE 93; RESP 18; TEMP 36.6; O2SAT 99
== END 2024-09-02 12:00 ==
LOC: SERX 07:31
PROVIDERS: Physician Assistant; Emergency Provider Emergency Medicine
DX: R45.851 Suicidal ideations (principal)
CPT/HCPCS: 36415; 80048; 80307; 80320; 80329; 81025; 84439; 84443; 85025; 96127; 99284; A9270; G0480

== ENCOUNTER 2025-01-05 07:42 | Emergency (ER) | payer MEDICAID, SELFPAY ==
[2025-01-05 07:50] VITALS: BP 159/83; PULSE 92; RESP 19; TEMP 36.9; O2SAT 95; BMI 27.6
--- NOTE | 2025-01-05 09:17 | PD.EDSUICD ---
ED Psych RME/HPI General Chief Complaint: Suicidal Stated Complaint: depressed, states she wants to kill herself Arrival date/time: 01/05/25 07:42 Limitations: no limitations RME / HPI RME / HPI Narrative: DR. DEWAYNE GREEN ED EVALUATION: 34-year-old female presents to the Emergency Department with complaint of suicidal thoughts. She reports a history of a prior suicide attempt by pill ingestion. She denies hallucinations, denies thoughts of hurting others. She has both a therapist and a psychologist and last spoke with them yesterday, but she did not disclose her current worsening feelings. She takes Seroquel for sleep and uses marijuana occasionally. She lives with her parents. Other past medical history includes diabetes for which she takes metformin. Denies chest pain palpitations fevers chills nausea vomiting Related Data Home Medications ?Medication ?Instructions ?Recorded ?Confirmed metformin 1,000 mg tablet 1,000 mg PO BID 06/19/21 07/21/24 norethindrone (contraceptive) 0.35 0.35 mg PO QDAY 06/19/21 07/21/24 mg tablet (Namita) paroxetine HCl 30 mg tablet 30 mg PO DAILY 06/19/21 09/02/24 Allergies Allergy/AdvReac Type Severity Reaction Status Date / Time No Known Allergies Allergy Verified 01/05/25 07:47 Review of Systems Review of Systems Systems Reviewed: All systems reviewed, normal except as documented Past Medical History Past Medical History NEUROLOGIC: Positive Neurological Disorders and Head Trauma GASTROINTESTINAL: Positive Gastrointestinal Disorders and Gastroesophageal Reflux Disease REPRODUCTIVE: Positive Previous Pregnancies ENT: Positive Head Trauma ENDOCRINE: Positive Endocrine Disorders and Diabetes Mellitus Type 2 PSYCHO/SOCIAL: Positive Depression, Anxiety and Depression Family History FAMILY HISTORY: Positive Family Psychiatric Problems, Family Respiratory Disorders, Family Cardiac Disorders and Family Surgery Surgical History SURGICAL: Positive Tubal Ligation Social History SMOKING STATUS: Never smoker SECOND HAND EXPOSURE: Yes (mother, father and brother) SUBSTANCE USE: marijuana ALCOHOL: Never ED Exam General Limitations: Present no limitations General appearance: Present alert and in no apparent distress Head Head exam: Present atraumatic, normocephalic and normal inspection Eye Eye exam: Present normal appearance, PERRL and EOMI ENT ENT exam: Present normal exam, normal oropharynx and mucous membranes moist Neck Neck exam: Present normal inspection, full ROM and trachea midline Chest Chest inspection: Present normal inspection and symmetric chest wall rise Respiratory Respiratory exam: Present normal lung sounds bilaterally Cardiovascular Cardiovascular exam: Present regular rate, normal rhythm and normal heart sounds Abdominal Exam Abdominal exam: Present soft; Absent distention, tenderness or guarding Extremities Exam Extremities exam: Present normal inspection and full ROM Neurological Exam Neurological exam: Present alert, oriented X3 and CN II-XII intact Psychiatric Psychiatric exam: Present normal mood and depressed Skin Skin exam: Present warm, dry, intact and normal color Course Quality Measures none Orders Category Date Time Status 1799 Psychiatric Hold NOW Care 01/05/25 09:30 Ordered Bedside COVID-19 Antigen Test NOW Care 01/05/25 09:29 Completed One-to-one observation NOW Care 01/05/25 08:31 Completed Suicide precautions NOW Care 01/05/25 08:31 Completed Diet Regular Diet 01/05/25 Lunch Active Acetaminophen Stat Lab 01/05/25 09:42 Completed Alcohol, Blood Medical Stat Lab 01/05/25 09:42 Completed CBC Stat Lab 01/05/25 09:42 Completed CMP [Comprehensive Metabolic Panel] Stat Lab 01/05/25 09:42 Completed Drug Screen,Urine Stat Lab 01/05/25 09:26 Completed HCG,Qualitative Serum Stat Lab 01/05/25 09:42 Completed Salicylate Stat Lab 01/05/25 09:42 Completed LORazepam [Ativan] Med 01/05/25 12:36 Discontinued 0.5 mg PO X1 ONE Reevaluation(s) Reevaluation #1: Patient is medically cleared. Time: 10:41 Vital Signs Vital signs: Vital Signs Temperature 98.4 F 01/05/25 07:50 Pulse Rate 92 01/05/25 07:50 Respiratory Rate 19 01/05/25 07:50 Blood Pressure 159/83 H 01/05/25 07:50 Pulse Oximetry (%) 95 01/05/25 07:50 Oxygen Delivery Method Room Air 01/05/25 07:50 Psych MDM Narrative MDM Narrative:: I, Bharati Figueroa, am scribing for and in the presence of Dr. Sellers. 34-year-old female with suicidal thoughts and prior suicide attempt. No hallucinations. Patient is medically cleared at 1041 hours. Psychiatric evaluation initiated. Differential diagnoses include suicidal ideation, mood disorder, and anxiety exacerbation. Patient does not have any symptoms of chest with organic cause for patient's current presentation, doubt ACS arrhythmia metabolic disturbance urinary tract infection intoxication. 1301: director human services saw the patient and cleared her. Patient also agrees and does not want to be placed, last time it did not help. director human services got the patient a follow-up appointment with a therapist. Safety plan in place. Patient will be discharged with an acute stress reaction. Patient data External records reviewed:: [facility] previous records Clinical information provided by:: patient Social determinants that could affect healthcare access:: mental health Patient has the following chronic illnesses:: She reports a history of a prior suicide attempt by pill ingestion. She has both a therapist and a psychologist. She takes Seroquel for sleep and uses marijuana occasionally. Other past medical history includes diabetes for which she takes metformin. How is presenting disease/condition affected by chronic disease/condition?: exacerbated by Evaluation data The following diagnostics were reviewed and interpreted by me:: lab results Lab and/or radiology exams considered but not ordered:: none Interpretation Summary: See MDM narrative above. Medications / Prescriptions Medications or Prescriptions considered but not ordered:: none Medication administrations:: Medication Administration History Discontinued Medications Lorazepam (Lorazepam 0.5 Mg Tablet) 0.5 mg PO X1 ONE Stop: 01/05/25 12:37 Last Admin: 01/05/25 12:40 Dose: 0.5 mg Documented By: VL see above Consultations Consultation(s) initiated? (list below): No Diagnosis Psych Differential Diagnosis: other (suicidal ideation, mood disorder, and anxiety exacerbation) Most likely diagnosis given after review of the tests above:: Acute stress reaction Admission Indicated Admission indicated?: not indicated Admission Request Was there a request for admission?: No Disposition Plan Disposition Plan: Discharge Discharge Attestation Discharge Attestation: The patient and all family members were given an opportunity to ask questions and understood the discharge instructions. Discharge instructions specifically effects, indications for sooner follow up or return to the emergency department, and the expected course of current diagnosis. Patient condition: Stable Discharge Plan Plan Patient Disposition: HOME (Self Care) Prescriptions/Referrals Prescriptions/Med Rec: No Action paroxetine HCl 30 mg Tablet 30 mg PO DAILY metformin 1,000 mg tablet 1,000 mg PO BID Patient Comments: TAKE 1 TABLET BY MOUTH TWICE A DAY WITH A MEAL FOR 90 DAYS norethindrone (contraceptive) [Namita] 0.35 mg Tablet 0.35 mg PO QDAY Referrals: Pawel Tate MD [Primary Care Provider, Family Practice] - In 1 week Problem List Clinical Impression: Acute stress reaction Patient/Caregiver Discharge Instructions Education Materials: Stress Relief: A Positive Lifestyle Additional Instructions: I am glad that you are able to safety plan with our hospice social worker. It is important that you follow-up at your scheduled appointments with your therapist as well as your psychiatrist, I also recommend that you continue to be open and honest with your providers to help you continue acquiring skills for management of your emotions. Please return to the emergency department mediately if you have recurrence of symptoms or any symptom of concern. You can also call 911. Print Language: Arabic Stand Alone Forms: Jen Award Info., Patient Portal Info Letter
[2025-01-05 09:59] LABS: Basophils # (Auto) 0.0 Thou/mm3 (0.0-0.2); Basophils % (Auto) 0 % (0-2.5); Eosinophils # (Auto) 0.0 Thou/mm3 (0.0-0.5); Eosinophils % (Auto) 0 % (0-10); Hematocrit 45.8 % (36.0-46.0); Hemoglobin 16.1 g/dL (12.0-16.0); Immature Granulocytes Auto 0.03 Thou/mm3 (0.00-0.00); Lymphocytes # (Auto) 1.7 Thou/mm3 (1.0-4.8); Lymphocytes % (Auto) 16 % (10-50); Mean Corpuscular HGB Conc 35.2 g/dl (31.0-37.0); Mean Corpuscular Hemoglobin 31.2 pg (25.0-35.0); Mean Corpuscular Volume 89 fL (80-100); Monocytes # (Auto) 0.4 Thou/mm3 (0.0-0.8); Monocytes % (Auto) 4 % (0-12); Neutrophils # (Auto) 8.6 Thou/mm3 (1.8-7.7); Neutrophils % (Auto) 80 % (37-80); Nucleated Red Blood Cell # 0.00 Thou/mm3 (0.00-0.00); Nucleated Red Blood Cell % 0 /100 WBC (0); Platelet Count 289 Thou/mm3 (140-440); RDW Standard Deviation 40.9 fL (36.4-46.3); Red Blood Count 5.16 Miln/mm3 (4.00-5.20); White Blood Count 10.8 Thou/mm3 (3.6-11.0)
[2025-01-05 10:15] LABS: HCG,Qualitative Serum Negative
[2025-01-05 10:16] LABS: Amphetamine/Methamp Scrn,U Negative (Negative); Barbiturate Screen,Urine Negative (Negative); Benzodiazepines Screen,Urine Negative (Negative); Benzoylecgonine Screen, Ur Negative (Negative); Fentanyl Screen,Urine Negative (Negative); Opiate Screen,Urine Negative (Negative); THC Screen,Urine Positive (Negative)
[2025-01-05 10:17] LABS: Acetaminophen < 2.0 mcg/mL (10.0-20.0); Alanine Aminotransferase 19 U/L (10-49); Albumin, Serum 5.0 gm/dL (3.5-5.0); Albumin/Globulin Ratio 1.9 (1.2-2.2); Alcohol, Blood Medical < 10.0 mg/dL (0-10.0); Alkaline Phosphatase 51 U/L (46-116); Anion Gap 13 (7-16); Aspartate Amino Transferase 19 U/L (0-34); BUN/Creatinine Ratio 12 Ratio (12-20); Bilirubin,Total 0.6 mg/dL (0.3-1.2); Blood Urea Nitrogen 7 mg/dL (9-23); Calcium 9.3 mg/dL (8.3-10.6); Calcium (Corrected) 9.3 mg/dL (8.5-10.1); Carbon Dioxide 21.9 mMol/L (20.0-31.0); Chloride 108 mMol/L (98-107); Creatinine (Component) 0.6 mg/dL (0.6-1.3); Estimated Creatinine Clearance 141.6 mL/min (>60); Globulin 2.7 gm/dL (2.3-3.5); Glucose 149 mg/dL (74-106); Osmolality,Calculated 285 (275-295); Potassium 3.9 mMol/L (3.4-5.1); Salicylate < 3.0 mg/dL; Sodium 143 mMol/L (136-145); Total Protein 7.7 gm/dL (5.7-8.2); eGFR > 60 See Note
[2025-01-05 11:05] VITALS: BP 122/86; PULSE 84; RESP 16; TEMP 36.9; O2SAT 97
--- NOTE | 2025-01-05 13:31 | PC.CC ---
Patient is a 34 year-old year old female who presents to the hospital for suicidal ideation. Pt was voluntary. Consulting Application Engineer made [id number] contact with patient to complete psychiatric assessment. Consulting Application Engineer introduced self, role, and reason for assessment. Consulting Application Engineer disclosed limits of confidentiality as well. Patient appeared alert and oriented to self, place, and situation. Patient made appropriate eye contact with this comic writer and remained euthymic throughout assessment. Patient?s attitude appeared emotional but cooperative. No signs of delusions, paranoia or hallucinations. Patient confirmed information on demographics and reports to living with parents and her two children ages 7 and 14. Patient reports that this morning she began having thoughts of SI. Pt disclosed he was having suicidal ideation but did not have a plan or intent and this is why she came to the hospital. Patient is connected to through [facility] and is scheduled for an appointment on 01/18/2025 for outpatient mental health therapy. At the time of encounter patient denied suicidal and homicidal ideation; visual and auditory hallucinations. Patient reports feeling better and not so emotional. Patient reports feeling safe being discharged and will like to return home. Consulting Application Engineer explored with patient what she has to look forward to she stated family and her children. Patient reports that coping mechanisms when she has suicidal ideation such as listening to music, social media, and pets. Patient reports that if these coping mechanisms do not work this is when she comes to the hospital. Patient scored medium-risk on the [place] Screening. Patient toxicology was positive for THC. Consulting Application Engineer made contact with patients mother. She confirmed that patient is connected to out patient at [facility]. She reports she feels safe taking the patient home and providing extra supervision for the next 72 hours and will monitor patient and medication. Upon clinical consultation with [facility], Francesca patient does not meet criteria for 5150-hold and safety plan will be established with patient and mother Chiquis Richardson [phone]. Per mother, there are no firearms in the home. Mother reports that she will keep all sharps and medications in a secure location. Patient will not be left alone at home and extra supervision will be provided for the next 72 hours. Consulting Application Engineer provided update of safety plan to medical team and discharge plan with mother.
== END 2025-01-05 14:02 | disposition home or self-care (01) ==
PROVIDERS: Emergency Provider Emergency Medicine; PCP Family Medicine
DX: F43.0 Acute stress reaction (principal); E11.9 Type 2 diabetes mellitus without complications; F12.90 Cannabis use, unspecified, uncomplicated; F32.A Depression, unspecified; Z79.84 Long term (current) use of oral hypoglycemic drugs; Z91.51 Personal history of suicidal behavior; R45.851 Suicidal ideations
CPT/HCPCS: 36415; 80053; 80307; 80320; 80329; 84703; 85025; 87635; 96127; 99283; A9270; G0480